=== PATIENT | female | born 1985 | race Caucasian/White ===

== ENCOUNTER 2020-10-22 10:48 | Emergency (ER) | payer SELFPAY ==
[2020-10-22 11:11] VITALS: BP 166/109; PULSE 69; RESP 16; TEMP 36.5; O2SAT 97; BMI 54.8
[2020-10-22] MEDS: cephALEXin 500 MG CAPSULE PO (12:01)
[2020-10-22] MEDS: Lidocaine HCl 1 % MPF 5 ML VIAL SUBCUT (12:01)
[2020-10-22] MEDS: oxyCODONE HCl Immed Release 5 MG TABLET PO (12:02)
[2020-10-22] MEDS: NaPROXEN 500 MG TABLET PO (12:02)
--- NOTE | 2020-10-22 12:34 | ED_ITS ---
HPI - Skin/Abscess/Foreign Bdy General Chief complaint: Skin/Abscess/Foreign Body Stated complaint: abscess Time Seen by Provider: 10/22/20 11:26 Source: patient Mode of arrival: ambulatory Limitations: no limitations History of Present Illness HPI narrative: 34-year-old female presenting to the ED c c/o abscess to the right axilla for the past 4 days. denies fevers, foreign bodies, history of MRSA or any other symptom complaints or concerns at this time. Related Data Previous Rx's Medication Instructions Recorded cephalexin [Keflex] 500 mg PO Q6H 10 Days #40 cap 10/22/20 doxycycline monohydrate 100 mg PO BID 10 Days #20 cap 10/22/20 ibuprofen 800 mg PO Q8H PRN #14 tab 10/22/20 oxycodone-acetaminophen [Percocet] 1 tab PO Q6H PRN #10 tab 10/22/20 Allergies Allergy/AdvReac Type Severity Reaction Status Date / Time Iodinated Contrast Media Allergy Severe BRONCHOSPAS Unverified 08/03/20 15:29 [IV CONTRAST] M aminophylline Allergy Unknown unknown - Unverified 11/12/16 00:00 childhood, unknown: chlidhood iodine Allergy Unknown asthma Verified 11/12/16 00:00 attack ondansetron [Zofran] Allergy Unknown Dizziness Verified 11/12/16 00:00 Allergic Reation to biscuits Allergy Unknown Uncoded 05/31/16 00:00 a I V dye Allergy Unknown Uncoded 05/31/16 00:00 Iodine Allergy Unknown asthma Uncoded 05/31/16 00:00 attack Review of Systems Review of Systems: Constitutional : No Fever, No Chills Musculoskeletal : No joint pain, No Myalgias, No Joint Swelling Skin : No Skin Lesions, No rash, + abscess Neuro : No Weakness Heme/Lymph:No Lymphadenopathy Yes all other systems are reviewed and are negative [facility] Past Medical History Attestation statement: The following information was validated with the patient. Medical History Asthma Surgical History H/O hand surgery History of cholecystectomy Social History Social History Advance Directives: No Advance Directives Information Provided: No Physical Exam Vital Signs: Vital Signs: Last Vital Signs Temp 97.7 F 10/22/20 11:11 Pulse 69 10/22/20 11:11 Resp 16 10/22/20 11:11 BP 166/109 H 10/22/20 11:11 Pulse Ox 97 10/22/20 11:11 Body Mass Index 54.8 vital signs have been reviewed as normal and appeared to be correct. Blood pressure normal. Heart rate normal. Respiration rate normal. Temperature normal. Oxygen saturation normal. Appearance: Alert. Oriented X3. No acute distress. Head: Normal external exam. Normocephalic. Atraumatic. Eyes: PERRLA. EOMI. Conjunctiva and sclera normal. Eyelids normal. ENT: Pharynx normal. Uvula midline. Moist mucous membranes. Neck: Normal inspection. Neck supple. FROM. No adenopathy. No meningeal signs. No neck mass noted. CVS: Normal heart rate and rhythm. Heart sound normal. No murmurs noted. Pulses normal throughout. Respiratory: No respiratory distress. Painless inspiration. Breath sounds normal. Back: No CVA tenderness. Full range of motion noted. Skin: Tender fluctuant abscess noted to right axilla with mild surrounding erythema. No streaking or induration noted. No drainage noted. Skin warm and dry. Normal skin color. Normal skin turgor. No rashes/lesions/lacerations noted. Extremities: Extremities exhibit normal range of motion. Extremities nontender. Neuro: Oriented X 3. No motor deficit. No sensory deficit. Reflexes normal. Procedures Abscess I/D Site: upper extremity Side (if applicable): right Local Anesthetic: lidocaine 1% Amount of anesthesia used (mL): 5 Technique: incised with blade Amount of fluid expressed (mL): 10 Sent for culture/gram staining?: No Irrigation: Yes Packing used?: none Discharge Plan Discharge Clinical Impression: Cellulitis, Abscess of skin or subcutaneous tissue Patient Disposition: Home, Self-Care Instructions: Cellulitis (ED), Abscess (ED) Prescriptions: New ibuprofen 800 mg tablet 800 mg PO Q8H PRN (Reason: pain) Qty: 14 RF: 0 oxycodone-acetaminophen [Percocet] 5-325 mg tablet 1 tab PO Q6H PRN (Reason: pain) Qty: 10 RF: 0 doxycycline monohydrate 100 mg capsule 100 mg PO BID 10 Days Qty: 20 RF: 0 cephalexin [Keflex] 500 mg capsule 500 mg PO Q6H 10 Days Qty: 40 RF: 0 Referrals: Osmel Gordillo MD [Physician] - 2 days Stand Alone Forms: Work/School Release
== END 2020-10-22 12:45 | disposition home or self-care (01) ==
PROVIDERS: Emergency Provider Internal Medicine; PCP Nurse Practitioner Family
DX: L02.411 Cutaneous abscess of right axilla (principal); Z79.899 Other long term (current) drug therapy
CPT/HCPCS: 10060; 12001; 99283

== ENCOUNTER 2022-09-19 09:25 | Emergency (ER) | payer OTHER, SELFPAY ==
--- OUTSIDE RECORDS SUMMARY | 2022-09-19 10:00 | XMS_ITS | Continuity of Care Document ---
:1985 Author Organization [facility] Address [address] [place] [address]- Care Team Providers Name Role Phone Celine Jorge NP Primary Care Physician [id number] Date(s): 08/09/21 - 09/22/21 [facility] [address] [place] [address]- Attending Physician: Anthony Westfall MD Referring Physician: Celine Jorge NP Allergies, Adverse Reactions, Alerts Substance Reaction Severity Status aminophylline/amobarbital/ephedrine Active Contrast Dye Active
--- OUTSIDE RECORDS SUMMARY | 2022-09-19 10:00 | XMS_ITS | Continuity of Care Document ---
:1985 Author Organization [facility] Address [address] [place] [address]- Care Team Providers Name Role Phone [place] Celine LYNN Primary Care Physician Encounter [facility] NBR [id number] Date(s): 07/18/21 - 08/17/21 [facility] [address] [place] [address]- Allergies, Adverse Reactions, Alerts Substance Reaction Severity Status aminophylline/amobarbital/ephedrine Active Contrast Dye Active
--- OUTSIDE RECORDS SUMMARY | 2022-09-19 10:00 | XMS_ITS | Continuity of Care Document ---
:1985 Author Organization [facility] Isha [facility] Address [address] [address]- Care Team Providers Name Role Phone [place] [facility] WORKERCeline Primary Care Physician Encounter [facility] Date(s): 07/18/21 - 08/17/21 [facility] [address] [address]- Attending Physician: Annabel Padilla Admitting Physician: Annabel Padilla Referring Physician: Annabel Padilla Allergies, Adverse Reactions, Alerts Substance Reaction Severity Status aminophylline/amobarbital/ephedrine Active Contrast Dye Active
--- OUTSIDE RECORDS SUMMARY | 2022-09-19 10:00 | XMS_ITS | Continuity of Care Document ---
:1985 Author Organization [facility] Address [address] [place] [address]- Care Team Providers Name Role Phone [place] SECOND VP HR ASSESSMENTCeline Primary Care Physician Encounter [facility] Date(s): 08/23/21 - 09/22/21 [facility] [address] [place] [address]- Attending Physician: Annabel Padilla Admitting Physician: Annabel Padilla Referring Physician: Admtr, Ar8 Allergies, Adverse Reactions, Alerts Substance Reaction Severity Status aminophylline/amobarbital/ephedrine Active Contrast Dye Active
--- OUTSIDE RECORDS SUMMARY | 2022-09-19 10:00 | XMS_ITS | Continuity of Care Document ---
:1985 Author Organization [facility] Address [address] [place] [address]- Care Team Providers Name Role Phone [place] Celine LYNN Primary Care Physician [place] [facility] [place] - 01/03/[address] [address] Attending Physician: Tianna Soto Admitting Physician: Tianna Soto Referring Physician: Tianna Soto Allergies, Adverse Reactions, Alerts Substance Reaction Severity Status aminophylline/amobarbital/ephedrine Active Contrast Dye Active
== END 2022-09-19 10:12 | disposition left against medical advice (07) ==
PROVIDERS: Emergency Provider Emergency Medicine
DX: R22.42 Localized swelling, mass and lump, left lower limb (principal)

== ENCOUNTER 2023-05-30 09:37 | Outpatient (REF) | payer OTHER, SELFPAY ==
[2023-05-31 12:34] LABS: CT PCR NOT DETECTED (Not Detect.); NG PCR NOT DETECTED (Not Detect.)
== END 2023-05-30 09:38 | disposition home or self-care (01) ==
LOC: HO.LNP 09:37
PROVIDERS: PCP Nurse Practitioner Family; Visit Provider Advanced Practice Midwife
DX: N93.9 Abnormal uterine and vaginal bleeding, unspecified (principal); Z20.2 Contact with and (suspected) exposure to infections with a predominantly sexual mode of transmission
CPT/HCPCS: 0353U; 81025; 99202

== ENCOUNTER 2023-05-30 09:37 | Outpatient (AMB) | payer OTHER, SELFPAY ==
[2023-05-30 09:43] VITALS: BP 138/92; BMI 59.7
--- NOTE | 2023-05-30 09:43 | MHC.OFFVIS ---
Intake Vital Signs 05/30/23 09:43 Height 5 ft 6 in Weight 370 lb BMI 59.7 BP 138/92 H Intake Visit Reasons: menorrhagia Intake Note: The patient agreed to use of a medical investigator during this encounter. Scribed for COLEEN Dodd by Brenda Akins medical investigator, on 05/30/2023 at 10:00 am EST Auto Mechanic Supervisor Required: No Information Interpreted: non-clinical & clinical Tour Operator: Tour Operator Present (Tatiana Segundo ELIZABETH) Accompanied by: Self / Same As Patient Allergies Iodinated Contrast Media [IV CONTRAST] Allergy (Severe, Unverified 05/30/23 09:46) BRONCHOSPASM aminophylline Allergy (Unknown, Unverified 05/30/23 09:46) unknown - childhood, unknown: chlidhood iodine Allergy (Unknown, Verified 05/30/23 09:46) asthma attack ondansetron [Zofran] Allergy (Unknown, Verified 05/30/23 09:46) Dizziness Allergic Reation to biscuits a Allergy (Unknown, Uncoded 05/30/23 09:46) Anaphylaxis I V dye Allergy (Unknown, Uncoded 05/30/23 09:46) asthma attack Iodine Allergy (Unknown, Uncoded 05/30/23 09:46) asthma attack Is last menstrual period known: Yes Last menstrual period: 05/27/23 HPI HPI Comments History of Present Illness Details She presents for heavy and prolonged bleeding. She reports bleeding for approximately 45 days, started 03/25/22. Reports the bleeding stopped for 1 day and then started again on 05/27/23. Went to [facility] on 04/03/23 with complaints of heavy and prolonged bleeding with blood clots, 9 days straight. Her menses are typically 5-7 days. Also reported feeling dizzy when she went to [facility]. Lost a substantial amount of weight and then injured her knee and reports gaining all the weight back recently. Admits to recent cortisone injection one week prior to starting menses. Currently sexually active with female partner only. STD testing offered; she accepts. 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 Sexual orientation: Straight/Heterosexual Gender identity: Female Female Reproductive History Menstrual Age of Menarche: 12 Date of last menstrual period: 05/27/23 Review of Systems Const All systems reviewed & are unremarkable except as noted in HPI and below Reports abnormal vaginal bleeding Physical Exam Vital Signs: Last Vital Signs BP 138/92 H 05/30/23 09:43 BMI result Body Mass Index 59.7 Const General: cooperative, no acute distress, well developed and alert GI Inspection: Yes normal to inspection and Yes obesity External Female Exam: normal external appearance Speculum Exam - Vagina: normal appearance of the vagina (larger, longer metal speculum used) and vaginal bleeding (moderate amount in vault) Speculum Exam - Cervix: normal appearance of the cervix Bimanual exam- vagina & uterus: other (could not palpate due to body habitus) OB/external & speculum: vaginal bleeding (moderate amount in vault) Results AMB Test Urine AMB Test Urine Negative Last Edit by Tatiana Segundo CMA on 05/30/23 10:02 Results Reviewed Results Reviewed: Laboratory Last Values Tst Clinic Negative 05/30/23 10:01 Assessment & Plan Assessment & Plan (1) Abnormal uterine bleeding (AUB): Code(s): N93.9 - Abnormal uterine and vaginal bleeding, unspecified Plan: Reviewed causes of AUB including stress, medications, illness, hormones, injuries or trauma, weight changes. Discussed work up including pelvic US and labs. Reviewed normal spacing of menses, contact office that are spaced out shorter than 3?weeks and greater than 3 months. Go to ER with any prolonged or heavy bleeding. All of her questions and concerns were addressed to the best of my ability and she is agreeable to plan of care. Encouraged patient portal. RTO in 2 weeks for test results. (2) Potential exposure to STD: Code(s): Z20.2 - Contact with and (suspected) exposure to infections with a predominantly sexual mode of transmission Orders: Orders US pelvic and transvaginal Today N93.9 - Abnormal uterine and vaginal bleeding, unspecified Thyroid Stimulating Hormone Today N92.1 - Excessive and frequent menstruation with irregular cycle, N93.9 - Abnormal uterine and vaginal bleeding, unspecified Complete Blood Count no Diff Today N93.9 - Abnormal uterine and vaginal bleeding, unspecified CT NG by PCR Today N93.9 - Abnormal uterine and vaginal bleeding, unspecified AMB HCG Urine Test Today Z32.02 - Encounter for test, result negative Coding Level of Care Code New Pt Level 4 (86873) Diagnoses Abnormal uterine bleeding (AUB) N93.9 Potential exposure to STD Z20.2
== END 2023-05-30 10:26 | disposition home or self-care (01) ==
LOC: HO.HWS 09:37
PROVIDERS: PCP Nurse Practitioner Family; Visit Provider Advanced Practice Midwife
DX: N93.9 Abnormal uterine and vaginal bleeding, unspecified (principal); Z20.2 Contact with and (suspected) exposure to infections with a predominantly sexual mode of transmission; Z32.02 Encounter for pregnancy test, result negative
CPT/HCPCS: 99204

== ENCOUNTER 2023-06-06 14:26 | Outpatient (REF) | payer OTHER, SELFPAY ==
--- NOTE | ~2023-06-06 | US_ITS ---
EXAMINATION: US PELVIS CLINICAL INFORMATION: Abnormal uterine bleeding. Last menstrual period 05/27/2021. COMPARISON: None available. TECHNIQUE: Ultrasound of the pelvis is performed using both transabdominal and transvaginal transducers along with Doppler. Transvaginal imaging is performed due to inadequate visualization transabdominally. FINDINGS: The uterus is heterogeneous and measures 8.2 x 3.6 x 4.2 cm. No discrete fibroids identified. Endometrial thickness is 0.8 cm. Endometrium appears heterogeneous and echogenic. No significant free fluid. Right ovary measures 2.9 x 1.7 x 1.6 cm, volume 4.1 mL. Right ovary is unremarkable. Left ovary measures 2.8 x 1.6 x 2.3 cm, volume 4.9 mL and is unremarkable. US/US pelvic and transvaginal IMPRESSION: 1. Endometrial thickness is 0.8 cm. Endometrium appears heterogeneous and echogenic. 2. Unremarkable bilateral ovaries. 3. No discrete fibroids.
[2023-06-06 15:56] LABS: Hematocrit 35.4 % (37.0-47.0); Mean Corpuscular HGB Conc 31.1 g/dl (31.0-35.0); Mean Corpuscular Hemoglobin 24.8 pg (27.0-33.0); Mean Corpuscular Volume 79.7 fL (80.0-98.0); Mean Platelet Volume 9.7 fL (9.4-12.3); Platelet Count 358 X10*3/uL (160-400); Red Blood Count 4.44 X10*6/uL (4.20-5.50); Red Cell Distribution Width 14.4 % (11.0-16.0); White Blood Count 9.2 X10*3/uL (4.8-10.8)
[2023-06-06 17:08] LABS: Thyroid Stimulating Hormone 1.49 uIU/mL (0.32-4.0)
== END 2023-06-06 14:27 | disposition home or self-care (01) ==
LOC: HO.US 14:26
PROVIDERS: PCP Nurse Practitioner Family; Visit Provider Advanced Practice Midwife
DX: N92.1 Excessive and frequent menstruation with irregular cycle (principal); N93.9 Abnormal uterine and vaginal bleeding, unspecified
CPT/HCPCS: 36415; 76830; 76856; 84443; 85027

== ENCOUNTER 2023-06-16 14:22 | Outpatient (AMB) | payer OTHER, SELFPAY ==
[2023-06-16 14:38] VITALS: BP 158/100; PULSE 84; O2SAT 97; BMI 60.4
--- NOTE | 2023-06-16 14:38 | A.OFFPC_ITS ---
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 Allergies Iodinated Contrast Media [IV CONTRAST] Allergy (Severe, Unverified 06/16/23 14:42) BRONCHOSPASM aminophylline Allergy (Unknown, Unverified 06/16/23 14:42) unknown - childhood, unknown: chlidhood iodine Allergy (Unknown, Verified 06/16/23 14:42) asthma attack ondansetron [Zofran] Allergy (Unknown, Verified 06/16/23 14:42) Dizziness Allergic Reation to biscuits a Allergy (Unknown, Uncoded 06/16/23 14:42) Anaphylaxis I V dye Allergy (Unknown, Uncoded 06/16/23 14:42) asthma attack Iodine Allergy (Unknown, Uncoded 06/16/23 14:42) asthma attack Medication List - Last Reconciled 06/16/23 by GELA Mabry-GÉNESIS albuterol sulfate 90 mcg/actuation (Ventolin HFA) 2 puffs inhalation Q6H PRN cetirizine (Zyrtec) 10 mg PO DAILY PRN Tobacco use date assessed: 06/16/23 Dental Screening Dental Screen Date: 06/16/23 Did you have a dental visit in the last 12 months?: No Did you have a dental problem in the last 6 months where you did not have access to dental care?: No Was dental information given to patient?: No HPI BRASS MOLDER-Requesting Physical Exam HPI Details New pt is here for a PE. Will order labs. Has a esthetician facialist. Pt's blood pressure is elevated, will have pt monitor her BP at home. Denies chest pain, shortness of breath, headache, dizziness, and blurred vision. Pt also reports edema of her BLE. Will start hydrochlorothiazide 12.5mg. Pt will call me if her BP remains elevated. 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 1. Little interest or pleasure in doing things: several days 2. Feeling down, depressed, or hopeless: several days 3. Trouble falling or staying asleep, or sleeping too much: more than half the days 4. Feeling tired or having little energy: more than half the days 5. Poor appetite or overeating: nearly every day 6. Feeling bad about yourself - or that you are a failure or have let yourself or your family down: several days 7. Trouble concentrating on things, such as reading the newspaper or watching television: more than half the days 8. Moving or speaking so slowly that other people could have noticed. Or the opposite - being so fidgety or restless that you have been moving around a lot more than usual: several days 9. Thoughts that you would be better off or of hurting yourself in some way: not at all Total score: 13 Source: Developed by Drs. Anthony Peng, Hattie Sharif, Yovany Arechiga and colleagues, with an educational ludwin from [employer]. Thrive Questionnaire Date Thrive assessed: 06/16/23 I am a: Patient What is your living situation today?: I have a steady place to live Within the past 12 months, did the food you bought not last and you didn't have the money to get more?: Sometimes True Within the past 12 months, did you worry whether your food would run out before you got money to buy more?: Sometimes True Do you have trouble paying for medicines?: Yes Do you have trouble getting transportation to medical appointments?: No Do you have trouble paying your heating and electricity bill?: Yes Do you have trouble taking care of your child, family member or friend?: No Do you have trouble with day-to-day activities such as bathing, preparing meals, shopping, managing finances, etc.?: No Are you currently unemployed and looking for a job?: No Are you interested in more education?: No GINI-7 AMB Questionnaire GINI-7 Date GINI - 7 assessed: 06/16/23 Feeling nervous, anxious, or on edge: 1 = Several days Not being able to stop or control worryin = Nearly every day Worrying too much about different things: 3 = Nearly every day Trouble relaxin = More than half the days Being so restless that it is hard to sit still: 1 = Several days Becoming easily annoyed or irritable: 3 = Nearly every day Feeling afraid as if something awful might happen: 2 = More than half the days Total GINI-7 score (0-4 normal; 5-9 mild; 10-14 moderate; 15-21 severe): 15 Source: Developed by Drs. Anthony Peng, Hattie Sharif, Yovany Arechiga and colleagues, with an educational ludwin from [employer]. Review of Systems Const Denies chills and Denies fever(s) Eyes Denies blurry vision ENT Denies vertigo, Denies dizziness and Denies sore throat Card Denies chest pain at rest, Denies chest pain with activity, Denies diaphoresis, Denies dyspnea and Denies dyspnea on exertion Resp Denies cough, Denies dyspnea, Denies dyspnea on exertion and Denies wheezing GI Denies abdominal pain, Denies melena, Denies hematochezia, Denies constipation, Denies diarrhea and Denies loose stools Denies hematuria Musc Denies numbness and Denies tingling Skin/Breast Denies lesions Neuro Denies vertigo, Denies dizziness, Denies numbness and Denies tingling Psych Denies anxiety, Denies depression, Denies homicidal ideation, Denies suicidal ideation and Denies other (substance abuse) Aller/Immun Denies wheezing Physical exam (Primary Care) Vital Signs: Last Vital Signs Pulse 84 06/16/23 14:38 BP 148/90 H 06/16/23 15:16 Pulse Ox 97 06/16/23 14:38 Oxygen Delivery Method Room Air 06/16/23 14:38 BMI result Body Mass Index 60.4 Tobacco/Smoking Status: Tobacco use Status Tobacco use date assessed 06/16/23 06/16/23 14:48 Patient Tobacco Use Status Never used Tobacco 06/16/23 14:38 e-Cigarette/Vaping Use Never Used 06/16/23 14:48 PHQ-9: PHQ-9 Score PHQ-9: Total score 13 06/16/23 15:16 Thrive Assessment: Date of Thrive Assessment Date Thrive assessed 06/16/23 06/16/23 14:53 Const General: cooperative Nutritional Appearance: obese morbidly obese Orientation/consciousness: patient oriented x3 HENMT Head: Yes normal to inspection, Yes normocephalic and Yes atraumatic Ears: TM's normal bilaterally Eyes General: appearance normal, both eyes and all related structures Alignment and Position: alignment normal and position normal Neck Neck: Yes normal visual inspection and Yes no lymphadenopathy Thyroid: Thyroid normal Resp Effort & Inspection: normal respiratory effort Auscultation: clear to auscultation bilaterally Cardio Rate: regular rate Rhythm: regular rhythm Heart sounds: S1 normal heart sound present, S2 normal heart sound present and no murmurs GI Palpation (GI): Soft to palpation and nontender Auscultation: normal bowel sounds Skin Rashes: no rashes Neuro General: patient oriented x3, moves all extremities, no focal motor deficits and deep tendon reflexes 2+ bilaterally Romberg Test: Negative Extrem Right lower extremity: edema (trace) Left lower extremity: edema (trace) Psych Appearance: grossly normal Mental Status: mental status grossly normal Speech and movement: Normal speech and movement present Affect: normal affect Attitude: cooperative Thought process: Normal thought process present Thought content: Normal thought content present Insight: Good insight present (Psych) Judgement: Good judgement present (Psych) Assessment and Plan Assessment & Plan (1) Physical exam: Code(s): Z00.00 - Encounter for general adult medical examination without abnormal findings Plan: Labs ordered Plan The patient agreed to the use of a anesthesiology medical doctor for this encounter. Scribed for FRANCHESCA Rojo by Ying Sacnhez, anesthesiology medical doctor, on 06/16/2023 at 14:55 EST. Orders: Orders Comprehensive [place]. Panel Fast Today Z00.00 - Encounter for general adult medical examination without abnormal findings Lipid Panel Today Z00.00 - Encounter for general adult medical examination without abnormal findings TSH reflex Free T4 Today Z00.00 - Encounter for general adult medical examinat ion without abnormal findings Complete Blood Count Auto Diff Today Z00.00 - Encounter for general adult medical examination without abnormal findings UA CC w/rflx Micro + Cult Today Z00.00 - Encounter for general adult medical examination without abnormal findings Medications: New albuterol sulfate 90 mcg/actuation (Ventolin HFA) 2 puffs inhalation Q6H PRN 8.5 grams 3RF bronchospasm hydrochlorothiazide 12.5 mg PO DAILY 30 days 30 tabs 3RF hydrochlorothiazide 12.5 mg PO DAILY 30 tabs 3RF 30 days Coding Level of Care Code New Pt Prev Care 18-39yr([id number] Diagnoses Physical exam Z00.00
[2023-06-16 15:16] VITALS: BP 148/90
== END 2023-06-16 15:45 | disposition home or self-care (01) ==
PROVIDERS: Visit Provider Nurse Practitioner Family
DX: Z00.00 Encounter for general adult medical examination without abnormal findings (principal)
CPT/HCPCS: 99385

== ENCOUNTER 2023-07-01 09:09 | Outpatient (AMB) | payer OTHER, SELFPAY ==
--- NOTE | 2023-07-01 09:12 | A.OFFVIS_ITS ---
Intake Vital Signs 07/01/23 09:13 Height 5 ft 6 in Weight 374 lb BMI 60.4 BP 116/70 Intake Visit Reasons: US follow up Intake Note: The patient agreed to use of a medical health researcher during this encounter. Scribed for COLEEN Dodd by Sima Tian, medical health researcher, on 07/01/2023 at 9:31 am EST. Allergies Iodinated Contrast Media [IV CONTRAST] Allergy (Severe, Verified 07/01/23 09:13) BRONCHOSPASM aminophylline Allergy (Unknown, Verified 07/01/23 09:13) unknown - childhood, unknown: chlidhood iodine Allergy (Unknown, Verified 07/01/23 09:13) asthma attack ondansetron [Zofran] Allergy (Unknown, Verified 07/01/23 09:13) Dizziness Allergic Reation to biscuits a Allergy (Unknown, Uncoded 06/16/23 14:42) Anaphylaxis I V dye Allergy (Unknown, Uncoded 06/16/23 14:42) asthma attack Iodine Allergy (Unknown, Uncoded 06/16/23 14:42) asthma attack HPI HPI Comments History of Present Illness Details She is here with her partner Lay to discuss US results regarding AUB. 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 Reports using BC in the past from ED in March and stopped due to emotional changes, nauseous, and visual disturbances which was a great concerns since he is a business project analyst. Admits weight gain (45lb.) due to knee injury, she noted her abnormal bleeding coincided with her weight gain. She denies any contraindications to control such as: migraines with aura, history of DVT or pulmonary emboli, high blood pressure, liver disease, thromb olic disorders, Lupus, +RUTH, or smoking. Elevated BP on prior visits-not candidate for TK. [facility] Medical History (Updated 07/01/23 @ 10:52 by Sima Tian) Asthma BMI 60.0-69.9, adult Elevated BP without diagnosis of hypertension Tear of meniscus of left knee Surgical History H/O hand surgery History of cholecystectomy Family History Mother HTN (hypertension) COPD (chronic obstructive pulmonary disease) Substance use disorder Father Diabetes Substance use disorder Sister Substance use disorder Brother Substance use disorder Social History Household Members Other:: son, female partner Housing: Apartment Alcohol intake: never Patient Tobacco Use Status: Never used Tobacco e-Cigarette/Vaping Use: Never Used Second Hand Smoke Exposure: No Current occupational status: employed 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 US PELVIS CLINICAL INFORMATION:? Abnormal uterine bleeding. Last menstrual period 05/27/2021. COMPARISON: None available. TECHNIQUE: Ultrasound of the pelvis is performed using both transabdominal and transvaginal transducers along with Doppler. Transvaginal imaging is performed due to inadequate visualization transabdominally. FINDINGS: The uterus is heterogeneous and measures 8.2 x 3.6 x 4.2 cm. No discrete fibroids identified. Endometrial thickness is 0.8 cm. Endometrium appears heterogeneous and echogenic. No significant free fluid. Right ovary measures 2.9 x 1.7 x 1.6 cm, volume 4.1 mL. Right ovary is unremarkable. Left ovary measures 2.8 x 1.6 x 2.3 cm, volume 4.9 mL and is unremarkable. US/US pelvic and transvaginal IMPRESSION: ? 1. Endometrial thickness is 0.8 cm. Endometrium appears heterogeneous and echogenic. ? 2. Unremarkable bilateral ovaries. ? 3. No discrete fibroids. Laboratory Tests 06/06/23 15:44 TSH 1.49 06/06/23 15:44 Hgb 11.0 L Assessment & Plan Assessment & Plan (1) Encounter to discuss test results: Code(s): Z71.2 - Person consulting for explanation of examination or test findings Plan: Discussed: US findings; normal. Consider a EMB if no improvement from medical treatment- control. All of her questions and concerns were addressed to the best of my ability and shared decision making. She is agreeable to plan of care. (2) Abnormal uterine bleeding (AUB): Code(s): N93.9 - Abnormal uterine and vaginal bleeding, unspecified Plan: Weight can effect menstrual cycles, by hormonal changes. Encouraged weight loss, follow a Mediterranean diet. Benefits of weight loss for her cycle control. Iron Rx ordered; Rx with instructions given, plan one every other day for the first week. If experience heavy prolonged menses contact office or go to ED. Schedule 3 months follow up and contact office sooner if needed. (3) control counseling: Code(s): Z30.09 - Encounter for other general counseling and advice on contraception Plan: Reviewed different BC options for cycle control including IUD and Nexplanon. She defers for now and opts to read literature given. Pt. unsure of what she wants for cycle control, I suggested Mirjuan jose, pt. prefers Nexplanon. Encouraged some form of treatment for cycle control, prevention of anemia and heavy, prolonged cylces. Pt. wants to consider her options. (4) BMI 60.0-69.9, adult: Code(s): Z68.44 - Body mass index [BMI] 60.0-69.9, adult (5) Elevated BP without diagnosis of hypertension: Code(s): R03.0 - Elevated blood-pressure reading, without diagnosis of hypertension Medications: New ferrous sulfate 325 mg PO DAILY 90 tabs 2RF Coding Level of Care Code Est Pt Level 3 (20340) Diagnoses Encounter to discuss test results Z71.2 Abnormal uterine bleeding (AUB) N93.9 control counseling Z30.09 BMI 60.0-69.9, adult Z68.44 Elevated BP without diagnosis of hypertension R03.0
[2023-07-01 09:13] VITALS: BP 116/70; BMI 60.4
== END 2023-07-01 09:53 | disposition home or self-care (01) ==
LOC: HO.HWS 09:09
PROVIDERS: PCP Nurse Practitioner Family; Visit Provider Advanced Practice Midwife
DX: Z71.2 Person consulting for explanation of examination or test findings (principal); N93.9 Abnormal uterine and vaginal bleeding, unspecified; Z30.09 Encounter for other general counseling and advice on contraception; Z68.44 Body mass index [BMI] 60.0-69.9, adult; R03.0 Elevated blood-pressure reading, without diagnosis of hypertension
CPT/HCPCS: 99213

== ENCOUNTER → 2023-07-01 09:09 | Outpatient (BNVA) | payer OTHER, SELFPAY | PROVIDERS: PCP Nurse Practitioner Family; Visit Provider Advanced Practice Midwife | DX: Z71.2 Person consulting for explanation of examination or test findings (principal); N93.9 Abnormal uterine and vaginal bleeding, unspecified | CPT/HCPCS: 99212 ==

== ENCOUNTER 2023-09-11 09:35 | Outpatient (REF) | payer OTHER, SELFPAY ==
[2023-09-11 11:46] LABS: MANUAL DIFF FLAG NO
[2023-09-11 11:52] LABS: Basophils Percent Auto 0.5 % (0-2); Eosinophils Absolute Auto 0.2 X10*3/uL (0.0-0.4); Eosinophils Percent Auto 2.6 % (0-4); Hematocrit 35.1 % (37.0-47.0); Hemoglobin 11.2 g/dl (12.0-16.0); Imm Gran Abs Auto 0.02 X10*3/uL (0.00-0.03); Imm Gran Pct Auto 0.3 % (0.0-0.4); Lymphocytes Absolute Auto 2.1 X10*3/uL (1.2-4.9); Lymphocytes Percent Auto 28.9 % (20-40); Mean Corpuscular HGB Conc 31.9 g/dl (31.0-35.0); Mean Corpuscular Hemoglobin 24.7 pg (27.0-33.0); Mean Corpuscular Volume 77.3 fL (80.0-98.0); Mean Platelet Volume 9.8 fL (9.4-12.3); Monocytes Absolute Auto 0.4 X10*3/uL (0.1-1.2); Monocytes Percent Auto 5.4 % (2-11); Neutrophils Absolute Auto 4.6 x10*3/uL (2.0-8.3); Neutrophils Percent Auto 62.3 % (45-73); Platelet Count 336 X10*3/uL (160-400); Red Blood Count 4.54 X10*6/uL (4.20-5.50); Red Cell Distribution Width 15.9 % (11.0-16.0); White Blood Count 7.4 X10*3/uL (4.8-10.8)
[2023-09-11 12:23] LABS: Alanine Aminotransferase 19 U/L (0-31); Albumin Level 4.3 g/dL (3.5-5.0); Alkaline Phosphatase 74 U/L (39-117); Anion Gap 13 (12-20); Aspartate Amino Transferase 17 U/L (5-31); Bilirubin Total 0.4 mg/dL (0.0-1.0); Blood Urea Nitrogen 8 mg/dL (9-16); Calcium 9.5 mg/dL (8.4-10.2); Carbon Dioxide 26 mmol/L (22-29); Chloride 102 mmol/L (96-108); Cholesterol 156 mg/dL (<200); Estimated Glomerular Filt Rate > 60; Glucose Fasting 82 mg/dL (60-99); HDL Cholesterol 37 mg/dL (>40); LDL Cholesterol Calculated 96 mg/dL (<100); Potassium 3.4 mmol/L (3.3-5.1); Sodium 138 mmol/L (135-145); Total Protein 7.8 g/dL (6.5-8.0); Triglycerides 117 mg/dL (<150)
[2023-09-11 12:29] LABS: TSH reflex Free T4 1.75 uIU/mL (0.32-4.0)
[2023-09-11 13:08] LABS: Appearance Urine Clear; Color Urine Dark Yellow; Glucose Urine UA Negative (Negative); Leukocyte Esterase Urine Negative (Negative); Nitrite Urine Negative (Negative); UMIC TRIGGER UACC YES; Urine Blood Small (1+) (Negative); Urine Ketones Negative (Negative); Urine Protein Negative (Neg-Trace)
[2023-09-11 13:13] LABS: Bacteria Urine None Seen (None Seen); Hyaline Casts Urine 0-2 /LPF (0-2); RBC Urine >20 /HPF (0-2); WBC Urine 0-5 /HPF (0-5)
== END 2023-09-11 09:36 | disposition home or self-care (01) ==
LOC: HO.HMGCLDS 09:35
PROVIDERS: PCP Nurse Practitioner Family; Visit Provider Nurse Practitioner Family
DX: Z00.00 Encounter for general adult medical examination without abnormal findings (principal)
CPT/HCPCS: 36415; 80053; 80061; 81001; 81003; 84443; 85025

== ENCOUNTER 2023-09-15 10:08 | Outpatient (AMB) | payer OTHER, SELFPAY ==
--- NOTE | 2023-09-15 10:11 | MHC.PC.OV ---
Vital Signs 09/15/23 10:16 Height 5 ft 6 in Weight 368 lb 2 oz BMI 59.4 BP 134/78 Blood Pressure Location Lt brachial Position Sitting Pulse 72 Pulse Source Pulse Oximeter Pulse Oximetry (%) 99 Oxygen Delivery Method Room Air Intake Visit Reasons: 3m follow up Allergies Iodinated Contrast Media [IV CONTRAST] Allergy (Severe, Verified 09/15/23 10:27) BRONCHOSPASM aminophylline Allergy (Unknown, Verified 09/15/23 10:27) unknown - childhood, unknown: chlidhood iodine Allergy (Unknown, Verified 09/15/23 10:27) asthma attack ondansetron [Zofran] Allergy (Unknown, Verified 09/15/23 10:27) Dizziness Allergic Reation to biscuits a Allergy (Unknown, Uncoded 09/15/23 10:27) Anaphylaxis I V dye Allergy (Unknown, Uncoded 09/15/23 10:27) asthma attack Iodine Allergy (Unknown, Uncoded 09/15/23 10:27) asthma attack Medication List - Last Reconciled 09/15/23 by FRANCHESCA Mabry albuterol sulfate 90 mcg/actuation (Ventolin HFA) 2 puffs inhalation Q6H PRN albuterol sulfate 2.5 mg (3 mL) inhalation Q6H cetirizine (Zyrtec) 10 mg PO DAILY ferrous sulfate 325 mg PO DAILY hydrochlorothiazide 12.5 mg PO DAILY 30 days Tobacco use date assessed: 09/15/23 Dental Screening Dental Screen Date: 09/15/23 Did you have a dental visit in the last 12 months?: No Did you have a dental problem in the last 6 months where you did not have access to dental care?: No Was dental information given to patient?: No HPI 3m follow up HPI Details Pt has been taking her blood pressure at home and reports it is in the 120s-130s/70s-80s. Denies chest pain, shortness of breath, headache, dizziness, and blurred vision. Pt reports alopecia. She would like a referral to dermatology, will refer. Pt reports increased allergies. She is taking cetirizine once a day, recommended increasing this to twice a day. Will also send fluticasone. [facility] Medical History (Updated 09/15/23 @ 11:06 by FRANCHESCA Mabry) Elevated BP without diagnosis of hypertension BMI 60.0-69.9, adult Tear of meniscus of left knee Asthma Surgical History H/O hand surgery History of cholecystectomy Family History Mother HTN (hypertension) COPD (chronic obstructive pulmonary disease) Substance use disorder Father Diabetes Substance use disorder Sister Substance use disorder Brother Substance use disorder Social History Household Members Other:: son, female partner Housing: Apartment Alcohol intake: never Patient Tobacco Use Status: Never used Tobacco e-Cigarette/Vaping Use: Never Used Second Hand Smoke Exposure: No Current occupational status: employed 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 How often do you have a drink containing alcohol?: Monthly or less 2. How many drinks containing alcohol do you have on a typical day when you are drinking?: 1 or 2 3. How often do you have six or more drinks on one occasion?: Never Total Score: 1 Score Reviewed/Action Taken: Yes GINI-7 AMB Questionnaire GINI-7 Date GINI - 7 assessed: 06/16/23 Source: Developed by Drs. Anthony Peng, Hattie Sharif, Yovany Arechiga and colleagues, with an educational ludwin from [employer]. Review of Systems Const Reports as per HPI Physical exam (Primary Care) Vital Signs: Last Vital Signs Pulse 72 09/15/23 10:16 BP 134/78 09/15/23 10:16 Pulse Ox 99 09/15/23 10:16 Oxygen Delivery Method Room Air 09/15/23 10:16 BMI result Body Mass Index 59.4 Tobacco/Smoking Status: Tobacco use Status Tobacco use date assessed 09/15/23 09/15/23 10:13 Patient Tobacco Use Status Never used Tobacco 09/15/23 10:12 e-Cigarette/Vaping Use Never Used 10/30/23 10:12 Thrive Assessment: Date of Thrive Assessment Date Thrive assessed 06/16/23 09/15/23 10:12 Const General: cooperative Nutritional Appearance: obese morbidly obese Orientation/consciousness: patient oriented x3 Resp Effort & Inspection: normal respiratory effort Auscultation: clear to auscultation bilaterally Cardio Rate: regular rate Rhythm: regular rhythm Heart sounds: S1 normal heart sound present and S2 normal heart sound present Neuro General: patient oriented x3 Psych Appearance: grossly normal Mental Status: mental status grossly normal Speech and movement: Normal speech and movement present Affect: normal affect Attitude: cooperative Thought process: Normal thought process present Thought content: Normal thought content present Insight: Good insight present (Psych) Judgement: Good judgement present (Psych) Assessment and Plan Assessment & Plan (1) Alopecia: Code(s): L65.9 - Nonscarring hair loss, unspecified Plan: Referred to derm (2) Allergies: Code(s): T78.40XA - Allergy, unspecified, initial encounter Plan The patient agreed to the use of a medical record coder for this encounter. Scribed for FRANCHESCA Rojo by Ying Sanchez medical record coder, on 09/15/2023 at 10:25 EST. Orders: Referrals Dermatology Referral L65.9 - Nonscarring hair loss, unspecified Medications: New prednisone 50 mg PO DAILY 6 tabs 0RF 6 days fluticasone propionate 50 mcg/actuation (Allergy Relief (fluticasone)) administer into each nostril 2 sprays intranasal DAILY 16 grams 2RF Coding Level of Care Code Est Pt Level 3 (28486) Diagnoses Alopecia L65.9 Allergies T78.40XA
[2023-09-15 10:16] VITALS: BP 134/78; PULSE 72; O2SAT 99; BMI 59.4
== END 2023-09-15 10:45 | disposition home or self-care (01) ==
PROVIDERS: PCP Nurse Practitioner Family; Visit Provider Nurse Practitioner Family
DX: L65.9 Nonscarring hair loss, unspecified (principal); T78.40XA Allergy, unspecified, initial encounter
CPT/HCPCS: 99213

== ENCOUNTER 2024-02-21 09:32 | Outpatient (AMB) | payer OTHER, SELFPAY ==
[2024-02-21 10:16] VITALS: BP 130/70; PULSE 62; TEMP 36.8; O2SAT 100; BMI 58.4
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
== END 2024-02-21 12:37 | disposition home or self-care (01) ==
PROVIDERS: PCP Nurse Practitioner Family; Visit Provider Physician Assistant Medical
DX: G44.89 Other headache syndrome (principal)
CPT/HCPCS: 99051; 99214

== ENCOUNTER 2024-03-04 11:26 | Outpatient (AMB) | payer OTHER, SELFPAY ==
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
[2024-03-04 11:35] VITALS: BP 118/80; PULSE 76; O2SAT 98; BMI 59.4
== END 2024-03-04 12:41 | disposition home or self-care (01) ==
PROVIDERS: PCP Nurse Practitioner Family; Visit Provider Nurse Practitioner Family
DX: M50.90 Cervical disc disorder, unspecified, unspecified cervical region (principal); Z04.2 Encounter for examination and observation following work accident; M25.512 Pain in left shoulder; E66.01 Morbid (severe) obesity due to excess calories; Z68.43 Body mass index [BMI] 50.0-59.9, adult
CPT/HCPCS: 99213

== ENCOUNTER 2024-03-11 09:57 | Outpatient (REF) | payer OTHER, SELFPAY ==
--- NOTE | ~2024-03-11 | XR_ITS ---
EXAMINATION: XR CERVICAL SPINE XR LEFT SHOULDER CLINICAL INFORMATION: Cervical disc disorder unspecified. Pain in left shoulder. COMPARISON: None available. TECHNIQUE: 3 views of the left shoulder. 3 views of the cervical spine. FINDINGS: LEFT SHOULDER: Acromioclavicular and glenohumeral alignment is preserved. Mild hypertrophic change at the acromioclavicular joint with small inferior calcification. No abnormal soft tissue calcifications identified adjacent to the humeral head. Mild hypertrophic change along the inferior aspect of the glenohumeral joint. CERVICAL SPINE: Straightening of the normal cervical lordosis. Limited visualization of C6 and C7 due to overlying soft tissue and bony structures. Minimal anterolisthesis of C3 on C4, C4 on C5, and C5 on C6. Degenerative changes with moderate loss of disc space height at C5-C6 and on very limited views of C6-C7. XR/XR cervical spine 2V IMPRESSION: 1. Mild degenerative changes left acromioclavicular joint. 2. Moderate degenerative disc disease at C5-C6. 3. Substantially limited visualization of C6 and C7 due to overlying soft tissue and bony structures.
--- NOTE | ~2024-03-11 | XR_ITS ---
EXAMINATION: XR CERVICAL SPINE XR LEFT SHOULDER CLINICAL INFORMATION: Cervical disc disorder unspecified. Pain in left shoulder. COMPARISON: None available. TECHNIQUE: 3 views of the left shoulder. 3 views of the cervical spine. FINDINGS: LEFT SHOULDER: Acromioclavicular and glenohumeral alignment is preserved. Mild hypertrophic change at the acromioclavicular joint with small inferior calcification. No abnormal soft tissue calcifications identified adjacent to the humeral head. Mild hypertrophic change along the inferior aspect of the glenohumeral joint. CERVICAL SPINE: Straightening of the normal cervical lordosis. Limited visualization of C6 and C7 due to overlying soft tissue and bony structures. Minimal anterolisthesis of C3 on C4, C4 on C5, and C5 on C6. Degenerative changes with moderate loss of disc space height at C5-C6 and on very limited views of C6-C7. XR/XR shoulder LT min 2V IMPRESSION: 1. Mild degenerative changes left acromioclavicular joint. 2. Moderate degenerative disc disease at C5-C6. 3. Substantially limited visualization of C6 and C7 due to overlying soft tissue and bony structures.
== END 2024-03-11 09:58 | disposition home or self-care (01) ==
LOC: HO.HMGCX 09:57
PROVIDERS: PCP Nurse Practitioner Family; Visit Provider Nurse Practitioner Family
DX: M25.512 Pain in left shoulder (principal); M50.90 Cervical disc disorder, unspecified, unspecified cervical region
CPT/HCPCS: 72040; 73030

== ENCOUNTER 2024-03-29 10:11 | Outpatient (AMB) | payer OTHER, SELFPAY ==
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
[2024-03-29 10:29] VITALS: BP 140/90; PULSE 80; O2SAT 98; BMI 59.7
== END 2024-03-29 13:53 | disposition home or self-care (01) ==
PROVIDERS: PCP Nurse Practitioner Family; Visit Provider Nurse Practitioner Family
DX: R03.0 Elevated blood-pressure reading, without diagnosis of hypertension (principal); M50.90 Cervical disc disorder, unspecified, unspecified cervical region; M25.512 Pain in left shoulder
CPT/HCPCS: 99213

== ENCOUNTER 2024-04-01 11:00 | Outpatient (RCR) | payer OTHER, SELFPAY ==
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
--- NOTE | 2024-04-29 10:15 | MHC.PT.DC ---
[facility] [place] Office [place] Office [place] Office [address] [phone] F: [phone] F: [phone] F: [phone] F: [phone] Physical Therapy Discharge Report Diagnosis: pain in L shoulder Date of Surgery: n/a Date of Evaluation: 03/25/24 Date of Discharge: 04/29/24 Treatments to Date: 2 Cancellations to Date: 7 No Shows to Date: 1 Discharge Status: Visit Non-compliance Discharge Summary: Pt has demonstrated poor attendance with PT since start of care. She has cancelled 7 appointments and no showed 1. Therefore pt to be d/c. Electronically signed by: Ella Robledo, PT, DPT, ATC Please sign and return to therapist. Thank you for your referral.
== END 2024-04-29 10:15 | disposition home or self-care (01) ==
LOC: HO.PTCHIC 11:00
PROVIDERS: PCP Nurse Practitioner Family; Visit Provider Nurse Practitioner Family
DX: M25.512 Pain in left shoulder (principal)
CPT/HCPCS: 97110; 97161

== ENCOUNTER 2024-06-24 08:14 | Outpatient (AMB) | payer OTHER, SELFPAY ==
[2024-06-24 08:17] VITALS: BP 132/78; PULSE 78; O2SAT 98; BMI 57.3
--- NOTE | 2024-06-24 08:17 | AM.OFFWIN_ITS ---
Intake Vital Signs 06/24/24 08:17 Height 5 ft 6 in Intake Visit Reasons: PE Intake Note: pt is here for annual exam Patient Tobacco Use Status: Never used Tobacco Allergies Iodinated Contrast Media [IV CONTRAST] Allergy (Severe, Verified 06/24/24 08:17) BRONCHOSPASM aminophylline Allergy (Unknown, Verified 06/24/24 08:17) unknown - childhood, unknown: chlidhood iodine Allergy (Unknown, Verified 06/24/24 08:17) asthma attack ondansetron [Zofran] Allergy (Unknown, Verified 06/24/24 08:17) Dizziness Allergic Reation to biscuits a Allergy (Unknown, Uncoded 03/29/24 10:32) Anaphylaxis I V dye Allergy (Unknown, Uncoded 03/29/24 10:32) asthma attack Iodine Allergy (Unknown, Uncoded 03/29/24 10:32) asthma attack PFSH Medical History DDD (degenerative disc disease), cervical Elevated BP without diagnosis of hypertension BMI 60.0-69.9, adult Tear of meniscus of left knee Asthma Surgical History H/O hand surgery History of cholecystectomy Family History Mother HTN (hypertension) COPD (chronic obstructive pulmonary disease) Substance use disorder Father Diabetes Substance use disorder Sister Substance use disorder Brother Substance use disorder Social History Household Members Other:: son, female partner Housing: Apartment Alcohol intake: never Patient Tobacco Use Status: Never used Tobacco e-Cigarette/Vaping Use: Never Used Second Hand Smoke Exposure: No Current occupational status: employed 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
--- NOTE | 2024-06-24 08:17 | MHC.PC.OV ---
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 Accompanied by: Self / Same As Patient Allergies Iodinated Contrast Media [IV CONTRAST] Allergy (Severe, Verified 06/24/24 08:17) BRONCHOSPASM aminophylline Allergy (Unknown, Verified 06/24/24 08:17) unknown - childhood, unknown: chlidhood iodine Allergy (Unknown, Verified 06/24/24 08:17) asthma attack ondansetron [Zofran] Allergy (Unknown, Verified 06/24/24 08:17) Dizziness Allergic Reation to biscuits a Allergy (Unknown, Uncoded 03/29/24 10:32) Anaphylaxis I V dye Allergy (Unknown, Uncoded 03/29/24 10:32) asthma attack Iodine Allergy (Unknown, Uncoded 03/29/24 10:32) asthma attack Medication List - Last Reconciled 06/24/24 by FRANCHESCA Mabry albuterol sulfate 90 mcg/actuation (Ventolin HFA) 2 puffs inhalation Q6H PRN albuterol sulfate 2.5 mg (3 mL) inhalation Q6H cetirizine (Zyrtec) 10 mg PO DAILY cyclobenzaprine 10 mg PO BEDTIME PRN 30 days ferrous sulfate 325 mg PO DAILY fluticasone propionate 50 mcg/actuation (Allergy Relief (fluticasone)) 2 sprays intranasal DAILY hydrochlorothiazide 25 mg PO DAILY meloxicam 7.5 mg PO DAILY PRN 30 days montelukast 10 mg PO BEDTIME sumatriptan succinate take 1 tab at onset of headache; if no relief may repeat 1 tab after at least 2 hrs; max = 4 tabs/24 hr PO Tobacco use date assessed: 03/04/24 Dental Screening Dental Screen Date: 03/04/24 HPI PE HPI Details Pt is here for a PE. Will order labs. 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 [facility] Medical History DDD (degenerative disc disease), cervical Elevated BP without diagnosis of hypertension BMI 60.0-69.9, adult Tear of meniscus of left knee Asthma Surgical History H/O hand surgery History of cholecystectomy Family History Mother HTN (hypertension) COPD (chronic obstructive pulmonary disease) Substance use disorder Father Diabetes Substance use disorder Sister Substance use disorder Brother Substance use disorder Social History Household Members Other:: son, female partner Housing: Apartment Alcohol intake: never Patient Tobacco Use Status: Never used Tobacco e-Cigarette/Vaping Use: Never Used Second Hand Smoke Exposure: No Current occupational status: employed 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 1. Little interest or pleasure in doing things: more than half the days 2. Feeling down, depressed, or hopeless: several days 3. Trouble falling or staying asleep, or sleeping too much: several days 4. Feeling tired or having little energy: several days 5. Poor appetite or overeating: several days 6. Feeling bad about yourself - or that you are a failure or have let yourself or your family down: several days 7. Trouble concentrating on things, such as reading the newspaper or watching television: several days 8. Moving or speaking so slowly that other people could have noticed. Or the opposite - being so fidgety or restless that you have been moving around a lot more than usual: nearly every day 9. Thoughts that you would be better off or of hurting yourself in some way: nearly every day Total score: 14 Depression Screening Interpretation: Positive (pt reports she will find her own therapist, denies and SI or HI) Depression Screening Follow-up: Existing condition Depression Screening Done: Yes 10462 - PHQ-9 Billing: Yes Source: Developed by Drs. Anthony Peng, Hattie Sharif, Yovany Arechiga and colleagues, with an educational ludwin from [employer]. Thrive Questionnaire Date Thrive assessed: 06/24/24 I am a: Patient What is your living situation today?: I have a steady place to live Within the past 12 months, did the food you bought not last and you didn't have the money to get more?: Sometimes True Within the past 12 months, did you worry whether your food would run out before you got money to buy more?: Never true Do you have trouble paying for medicines?: No Do you have trouble getting transportation to medical appointments?: No Do you have trouble paying your heating and electricity bill?: Yes Do you have trouble taking care of your child, family member or friend?: No Do you have trouble with day-to-day activities such as bathing, preparing meals, shopping, managing finances, etc.?: I choose not to answer this question Are you currently unemployed and looking for a job?: I choose not to answer this question Are you interested in more education?: No Please select the resources that you would like help with: Utilities Currently or been in a relationship where the following occur: I choose not to answer THRIVE Score: 2 AUDIT C Alcohol Use Questionnaire (AUDIT-C) 1. How often do you have a drink containing alcohol?: Never 2. How many drinks containing alcohol do you have on a typical day when you are drinking?: 1 or 2 3. How often do you have six or more drinks on one occasion?: Never Total Score: 0 Score Reviewed/Action Taken: Yes GINI-7 AMB Questionnaire GINI-7 Date GINI - 7 assessed: 06/24/24 Feeling nervous, anxious, or on edge: 1 = Several days Not being able to stop or control worryin = Several days Worrying too much about different things: 1 = Several days Trouble relaxin = Several days Being so restless that it is hard to sit still: 1 = Several days Becoming easily annoyed or irritable: 2 = More than half the days Feeling afraid as if something awful might happen: 2 = More than half the days Total GINI-7 score (0-4 normal; 5-9 mild; 10-14 moderate; 15-21 severe): 9 Source: Developed by Drs. Anthony Pneg, Hattie Sharif, Yovany Arechiga and colleagues, with an educational ludwin from [employer]. GINI-7 Assessment Billing GINI-7 Assessment Tool: GINI-7 Assessment 95530 Review of Systems Const Denies chills and Denies fever(s) Eyes Denies blurry vision ENT Denies vertigo, Denies dizziness and Denies sore throat Card Denies chest pain at rest, Denies chest pain with activity, Denies diaphoresis, Denies dyspnea and Denies dyspnea on exertion Resp Denies cough, Denies dyspnea, Denies dyspnea on exertion and Denies wheezing GI Denies abdominal pain, Denies melena, Denies hematochezia, Denies constipation, Denies diarrhea and Denies loose stools Denies hematuria Musc Denies numbness and Denies tingling Skin/Breast Denies lesions Neuro Denies vertigo, Denies dizziness, Denies numbness and Denies tingling Psych Denies anxiety, Denies depression, Denies homicidal ideation, Denies suicidal ideation and Denies other (substance abuse) Aller/Immun Denies wheezing Physical exam (Primary Care) Vital Signs: Last Vital Signs Pulse 78 06/24/24 08:17 BP 132/78 06/24/24 08:17 Pulse Ox 98 06/24/24 08:17 Oxygen Delivery Method Room Air 06/24/24 08:17 BMI result Body Mass Index 57.3 Tobacco/Smoking Status: Tobacco use Status Tobacco use date assessed 03/04/24 06/24/24 08:18 Patient Tobacco Use Status Never used Tobacco 06/24/24 08:18 e-Cigarette/Vaping Use Never Used 06/24/24 08:18 PHQ-9: PHQ-9 Score PHQ-9: Total score 14 06/24/24 08:44 Depression Screening Interpretation: Positive (pt reports she will find her own therapist, denies and SI or HI) Depression Screening Follow-up: Existing condition Thrive Assessment: Date of Thrive Assessment Date Thrive assessed 06/24/24 06/24/24 08:28 Currently or been in a relationship where the following occur: I choose not to answer Const General: cooperative Nutritional Appearance: obese morbidly obese Orientation/consciousness: patient oriented x3 HENMT Head: Yes normal to inspection, Yes normocephalic and Yes atraumatic Ears: TM's normal bilaterally Eyes General: appearance normal, both eyes and all related structures Alignment and Position: alignment normal and position normal Neck Neck: Yes normal visual inspection and Yes no lymphadenopathy Thyroid: Thyroid normal Resp Effort & Inspection: normal respiratory effort Auscultation: clear to auscultation bilaterally Cardio Rate: regular rate Rhythm: regular rhythm Heart sounds: S1 normal heart sound present, S2 normal heart sound present and no murmurs GI Palpation (GI): Soft to palpation and nontender Auscultation: normal bowel sounds Skin Rashes: no rashes Neuro General: patient oriented x3, moves all extremities, no focal motor deficits and deep tendon reflexes 2+ bilaterally Romberg Test: Negative Extrem Right lower extremity: edema (trace) Left lower extremity: edema (trace) Psych Appearance: grossly normal Mental Status: mental status grossly normal Speech and movement: Normal speech and movement present Affect: normal affect Attitude: cooperative Thought process: Normal thought process present Thought content: Normal thought content present Insight: Good insight present (Psych) Judgement: Good judgement present (Psych) Assessment and Plan Assessment & Plan (1) Physical exam: Code(s): Z00.00 - Encounter for general adult medical examination without abnormal findings Plan: labs ordered Plan The patient agreed to the use of a medical coding instructor for this encounter. Scribed for FRANCHESCA Rojo by Ying Sanchez medical coding instructor, on 06/24/2024 at 08:35 EST. Medications: Changed From cyclobenzaprine 5 mg PO BEDTIME 24 days PRN 24 tabs 0RF muscle spasm To cyclobenzaprine 10 mg PO BEDTIME PRN 30 tabs 1RF muscle spasm 30 days Refilled sumatriptan succinate take 1 tab at onset of headache; if no relief may repeat 1 tab after at least 2 hrs; max = 4 tabs/24 hr PO 7 tabs 3RF Coding Level of Care Code Est Pt Prev Care 18-39y(26444) Diagnoses Physical exam Z00.00 Additional Codes GINI-7 Assessment Billing - GINI-7 Assessment Tool: GINI-7 Assessment 23365 ([id number])
== END 2024-06-24 09:01 | disposition home or self-care (01) ==
PROVIDERS: PCP Nurse Practitioner Family; Visit Provider Nurse Practitioner Family
DX: Z00.00 Encounter for general adult medical examination without abnormal findings (principal)
CPT/HCPCS: 99395

== ENCOUNTER 2024-06-24 09:09 | Outpatient (REF) | payer OTHER, SELFPAY ==
[2024-06-24 10:13] LABS: Appearance Urine Cloudy; Color Urine Yellow; Glucose Urine UA Negative (Negative); Leukocyte Esterase Urine Moderate (2+) (Negative); Nitrite Urine Negative (Negative); UMIC TRIGGER UACC YES; Urine Blood Small (1+) (Negative); Urine Ketones Negative (Negative); Urine Protein Negative (Neg-Trace)
[2024-06-24 10:21] LABS: MANUAL DIFF FLAG NO
[2024-06-24 10:29] LABS: Basophils Percent Auto 0.4 % (0-2); Eosinophils Absolute Auto 0.2 X10*3/uL (0.0-0.4); Eosinophils Percent Auto 2.8 % (0-4); Hematocrit 35.7 % (37.0-47.0); Hemoglobin 11.4 g/dl (12.0-16.0); Imm Gran Abs Auto 0.02 X10*3/uL (0.00-0.03); Imm Gran Pct Auto 0.3 % (0.0-0.4); Lymphocytes Absolute Auto 1.4 X10*3/uL (1.2-4.9); Lymphocytes Percent Auto 18.6 % (20-40); Mean Corpuscular HGB Conc 31.9 g/dl (31.0-35.0); Mean Corpuscular Hemoglobin 25.7 pg (27.0-33.0); Mean Corpuscular Volume 80.4 fL (80.0-98.0); Mean Platelet Volume 9.8 fL (9.4-12.3); Monocytes Absolute Auto 0.5 X10*3/uL (0.1-1.2); Monocytes Percent Auto 5.9 % (2-11); Neutrophils Absolute Auto 5.6 x10*3/uL (2.0-8.3); Platelet Count 294 X10*3/uL (160-400); Red Blood Count 4.44 X10*6/uL (4.20-5.50); Red Cell Distribution Width 14.4 % (11.0-16.0); White Blood Count 7.8 X10*3/uL (4.8-10.8)
[2024-06-24 11:10] LABS: Bacteria Urine Trace (None Seen); Hyaline Casts Urine 0-2 /LPF (0-2); UACC Culture Trigger YES
[2024-06-24 11:14] LABS: Alanine Aminotransferase 12 U/L (0-31); Albumin Level 4.2 g/dL (3.5-5.0); Alkaline Phosphatase 70 U/L (39-117); Anion Gap 10 (12-20); Aspartate Amino Transferase 10 U/L (5-31); Bilirubin Total 0.3 mg/dL (0.0-1.0); Blood Urea Nitrogen 13 mg/dL (9-16); Calcium 9.9 mg/dL (8.4-10.2); Carbon Dioxide 29 mmol/L (22-29); Chloride 103 mmol/L (96-108); Cholesterol 152 mg/dL (<200); Estimated Glomerular Filt Rate > 60; Glucose Fasting 100 mg/dL (60-99); HDL Cholesterol 40 mg/dL (>40); LDL Cholesterol Calculated 93 mg/dL (<100); Sodium 138 mmol/L (135-145); Total Protein 7.8 g/dL (6.5-8.0); Triglycerides 97 mg/dL (<150)
[2024-06-24 11:32] LABS: TSH reflex Free T4 1.81 uIU/mL (0.32-4.0)
== END 2024-06-24 09:10 | disposition home or self-care (01) ==
LOC: HO.HMGCLDS 09:09
PROVIDERS: PCP Nurse Practitioner Family; Visit Provider Nurse Practitioner Family
DX: R03.0 Elevated blood-pressure reading, without diagnosis of hypertension (principal)
CPT/HCPCS: 36415; 80053; 80061; 81001; 81003; 84443; 85025; 87086

== ENCOUNTER 2024-06-25 09:24 | Outpatient (REF) | payer OTHER, SELFPAY ==
[2024-06-25 13:06] LABS: Appearance Urine Clear; Color Urine Yellow; Glucose Urine UA Negative (Negative); Leukocyte Esterase Urine Negative (Negative); Nitrite Urine Negative (Negative); Urine Blood Negative (Negative); Urine Ketones Negative (Negative); Urine Protein Negative (Neg-Trace)
[2024-06-25 13:14] LABS: Immature Retic Fraction 20.7 % (3.0-15.9); Retic HGB Equivalent 29.3 pg (30.0-35.0); Reticulocyte Percent 1.8 % (0.5-1.8)
[2024-06-25 13:38] LABS: Iron 44 mcg/dL (30-160); Percent Iron Saturation 13 % (15-50); Total Iron Binding Capacity 332 mcg/dL (228-428); Unsaturated Iron Binding 288 ug/dL
[2024-06-25 13:56] LABS: Ferritin 44 ng/mL (10-122)
[2024-06-25 13:59] LABS: Folate 9.1 ng/mL (> or = 4.0); Vitamin B12 435 pg/mL (200-900)
[2024-06-28 14:43] LABS: Hematocrit 36.7 % (35.0-45.0); Hemoglobin 11.8 g/dL (11.7-15.5); MCH 26.5 pg (27.0-33.0); MCV 82.3 fL (80.0-100.0); RBC 4.46 Million/uL (3.80-5.10); RDW 14.4 % (11.0-15.0)
== END 2024-06-25 09:25 | disposition home or self-care (01) ==
LOC: HO.HMGCLDS 09:24
PROVIDERS: PCP Nurse Practitioner Family; Visit Provider Nurse Practitioner Family
DX: D64.9 Anemia, unspecified (principal); R03.0 Elevated blood-pressure reading, without diagnosis of hypertension
CPT/HCPCS: 36415; 81003; 82607; 82728; 82746; 83020; 83540; 85014; 85018; 85041; 85045

== ENCOUNTER 2024-10-07 10:18 | Outpatient (AMB) | payer OTHER, SELFPAY ==
[2024-10-07 10:25] VITALS: BP 132/84; PULSE 83; O2SAT 98; BMI 59.1
--- NOTE | 2024-10-07 10:25 | A.OFFPC_ITS ---
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 Accompanied by: Self / Same As Patient Allergies Iodinated Contrast Media [IV CONTRAST] Allergy (Severe, Verified 10/07/24 10:27) BRONCHOSPASM aminophylline Allergy (Unknown, Verified 10/07/24 10:27) unknown - childhood, unknown: chlidhood iodine Allergy (Unknown, Verified 10/07/24 10:27) asthma attack ondansetron [Zofran] Allergy (Unknown, Verified 10/07/24 10:27) Dizziness Allergic Reation to biscuits a Allergy (Unknown, Uncoded 03/29/24 10:32) Anaphylaxis I V dye Allergy (Unknown, Uncoded 03/29/24 10:32) asthma attack Iodine Allergy (Unknown, Uncoded 03/29/24 10:32) asthma attack Medication List - Last Reconciled 10/07/24 by Juaquin Patel, [employer] MA[employer]GER- albuterol sulfate 90 mcg/actuation (Ventolin HFA) 2 puffs inhalation Q6H PRN albuterol sulfate 2.5 mg (3 mL) inhalation Q6H cetirizine (Zyrtec) 10 mg PO DAILY cyclobenzaprine 10 mg PO BEDTIME PRN 30 days ferrous sulfate 325 mg PO DAILY fluticasone propionate 50 mcg/actuation (Allergy Relief (fluticasone)) 2 sprays intranasal DAILY hydrochlorothiazide 25 mg PO DAILY meloxicam 7.5 mg PO DAILY PRN 30 days montelukast 10 mg PO BEDTIME sumatriptan succinate take 1 tab at onset of headache; if no relief may repeat 1 tab after at least 2 hrs; max = 4 tabs/24 hr PO tirzepatide (weight loss) (Zepbound) 2.5 mg (0.5 mL) subcut QWEEK Tobacco use date assessed: 03/04/24 Dental Screening Dental Screen Date: 03/04/24 HPI weight loss med options HPI Details Patient is here for follow-up for her morbid obesity/weight loss. She reports that she has tried diets and exercise in the past. Her current BMI is 59.1. I think it is imperative that she does start a GLP 1 agonist, I will send zepbound. Denies any shortness of breath, chest pain, dizziness, headache, blurred vision. Patient understands the side effects of this medication and how it works. [facility] Medical History DDD (degenerative disc disease), cervical Elevated BP without diagnosis of hypertension BMI 60.0-69.9, adult Tear of meniscus of left knee Asthma Surgical History H/O hand surgery History of cholecystectomy Family History Mother HTN (hypertension) COPD (chronic obstructive pulmonary disease) Substance use disorder Father Diabetes Substance use disorder Sister Substance use disorder Brother Substance use disorder Social History Household Members Other:: son, female partner Housing: Apartment Alcohol intake: never Patient Tobacco Use Status: Never used Tobacco e-Cigarette/Vaping Use: Never Used Second Hand Smoke Exposure: No Current occupational status: employed 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 Sexual orientation: Straight/Heterosexual Gender identity: Female Cognitive needs: No Hearing needs: No Vision needs: No Female Reproductive History Menstrual Age of Menarche: 12 Questionnaire Thrive Questionnaire Date Thrive assessed: 10/07/24 I am a: Patient What is your living situation today?: I have a steady place to live Within the past 12 months, did the food you bought not last and you didn't have the money to get more?: Sometimes True Within the past 12 months, did you worry whether your food would run out before you got money to buy more?: Never true Do you have trouble paying for medicines?: No Do you have trouble getting transportation to medical appointments?: No Do you have trouble paying your heating and electricity bill?: Yes Do you have trouble taking care of your child, family member or friend?: No Do you have trouble with day-to-day activities such as bathing, preparing meals, shopping, managing finances, etc.?: I choose not to answer this question Are you currently unemployed and looking for a job?: I choose not to answer this question Are you interested in more education?: No Please select the resources that you would like help with: Utilities Currently or been in a relationship where the following occur: I choose not to answer THRIVE Score: 2 GINI-7 AMB Questionnaire GINI-7 Date GINI - 7 assessed: 06/24/24 Source: Developed by Drs. Anthony Peng, Hattie Sharif, Yovany Arechiga and colleagues, with an educational ludwin from [employer]. Physical exam (Primary Care) Vital Signs: Last Vital Signs Pulse 83 10/07/24 10:25 BP 132/84 10/07/24 10:25 Pulse Ox 98 10/07/24 10:25 Oxygen Delivery Method Room Air 10/07/24 10:25 BMI result Body Mass Index 59.1 Tobacco/Smoking Status: Tobacco use Status Tobacco use date assessed 03/04/24 10/07/24 10:28 Patient Tobacco Use Status Never used Tobacco 10/07/24 10:28 e-Cigarette/Vaping Use Never Used 10/07/24 10:28 Thrive Assessment: Date of Thrive Assessment Date Thrive assessed 10/07/24 10/07/24 10:28 Currently or been in a relationship where the following occur: I choose not to answer Resp Effort & Inspection: normal respiratory effort Auscultation: clear to auscultation bilaterally Cardio Rate: regular rate Rhythm: regular rhythm Heart sounds: S1 normal heart sound present, S2 normal heart sound present and no murmurs Psych Appearance: grossly normal Mental Status: mental status grossly normal Speech and movement: Normal speech and movement present Attitude: cooperative Thought process: Normal thought process present Thought content: Normal thought content present Insight: Good insight present (Psych) Judgement: Good judgement present (Psych) Coding Level of Care Code Est Pt Level 3 (63245) Diagnoses Morbid obesity E66.01 Assessment & Plan Assessment & Plan (1) Morbid obesity: Code(s): E66.01 - Morbid (severe) obesity due to excess calories Category: Medical Plan: Sending a GLP 1 agonist for patient to start. Lab orders entered. Orders: Orders Comprehensive [place]. Panel Fast Today E66.01 - Morbid (severe) obesity due to excess calories TSH reflex Free T4 Today E66.01 - Morbid (severe) obesity due to excess calories Lipid Panel Today E66.01 - Morbid (severe) obesity due to excess calories Complete Blood Count Auto Diff Today E66.01 - Morbid (severe) obesity due to excess calories UA CC w/rflx Micro + Cult Today E66.01 - Morbid (severe) obesity due to excess calories Medications: New omeprazole 20 mg PO DAILY 30 caps 3RF tirzepatide (weight loss) (Zepbound) for 4 weeks 2.5 mg (0.5 mL) subcut QWEEK 2 mL 0RF
== END 2024-10-07 11:09 | disposition home or self-care (01) ==
PROVIDERS: PCP Nurse Practitioner Family; Visit Provider Nurse Practitioner Family
DX: E66.01 Morbid (severe) obesity due to excess calories (principal); Z68.43 Body mass index [BMI] 50.0-59.9, adult

== ENCOUNTER → 2024-10-07 10:18 | Outpatient (BNVA) | payer OTHER, SELFPAY | PROVIDERS: PCP Nurse Practitioner Family; Visit Provider Nurse Practitioner Family | DX: E66.01 Morbid (severe) obesity due to excess calories (principal); Z68.43 Body mass index [BMI] 50.0-59.9, adult; Z71.3 Dietary counseling and surveillance | CPT/HCPCS: 99212 ==

== ENCOUNTER 2024-12-14 14:25 | Emergency (ER) | payer OTHER, SELFPAY ==
--- NOTE | 2024-12-14 15:08 | ED.GENADULT ---
HPI - General Adult General Chief complaint: General Medical Stated complaint: Electrocution R hand Time Seen by Provider: 12/14/24 19:35 Source: patient Limitations: no limitations History of Present Illness ED Provider: Ashia Damon PA-C HPI narrative: 39-year-old female presents after electrolyte shock. Patient states she was playing in her phone dairy products maker when she sustained a shock into the right 2nd digit. Patient states initially the pain radiated up to the point of the elbow. Her forearm felt tense at that time. Her symptoms are improving, she has residual ?tingling sensation?, over the tip of the 2nd digit. Related Data Previous Rx's ?Medication ?Instructions ?Recorded albuterol sulfate 90 mcg/actuation 2 puff inhalation Q6H PRN 06/16/23 aerosol inhaler (Ventolin HFA) bronchospasm #8.5 grams ferrous sulfate 325 mg (65 mg 325 mg PO DAILY #90 tabs 07/01/23 iron) tablet cetirizine 10 mg tablet (Zyrtec) 10 mg PO DAILY #90 tabs 11/12/23 fluticasone propionate 50 2 spray intranasal DAILY #16 grams 11/12/23 mcg/actuation nasal spray,suspension (Allergy Relief (fluticasone)) albuterol sulfate 2.5 mg/3 mL 2.5 mg (3 mL) inhalation Q6H #75 mL 06/09/24 (0.083 %) solution for nebulization montelukast 10 mg tablet 10 mg PO BEDTIME #90 tabs 06/23/24 sumatriptan succinate 25 mg tablet See Rx Instructions PO .COMPLEX #7 06/24/24 tabs hydrochlorothiazide 25 mg tablet 25 mg PO DAILY #90 tabs 09/19/24 cyclobenzaprine 10 mg tablet 10 mg PO BEDTIME PRN muscle spasm 10/05/24 30 days #30 tabs omeprazole 20 mg capsule,delayed 20 mg PO DAILY #30 caps 10/07/24 release tirzepatide (weight loss) 2.5 2.5 mg (0.5 mL) subcut QWEEK #2 mL 10/07/24 mg/0.5 mL subcutaneous pen injector (Zepbound) meloxicam 7.5 mg tablet 7.5 mg PO DAILY PRN left shoulder 11/26/24 30 days #30 tabs methocarbamol 750 mg tablet 750 mg PO Q8H PRN pain, moderate 12/14/24 #10 tabs Allergies Allergy/AdvReac Type Severity Reaction Status Date / Time Iodinated Contrast Media Allergy Severe BRONCHOSPAS Verified 12/14/24 15:14 [IV CONTRAST] M aminophylline Allergy Unknown unknown - Verified 12/14/24 15:14 childhood, unknown: chlidhood iodine Allergy Unknown asthma Verified 12/14/24 15:14 attack ondansetron [Zofran] Allergy Unknown Dizziness Verified 12/14/24 15:14 lactose Allergy Gastrointestinal Verified 12/14/24 15:14 Upset I V dye Allergy Unknown asthma Uncoded 12/14/24 15:14 attack Iodine Allergy Unknown asthma Uncoded 12/14/24 15:14 attack romanian cheese Allergy Anaphylaxis Uncoded 12/14/24 15:14 Review of Systems Review of Systems: Yes all other systems are reviewed and are negative Constitutional: Constitutional: Denies fatigue and Denies fever(s) Cardiovascular: Cardiovascular: Denies chest pain and Denies dyspnea Respiratory: Respiratory: Denies dyspnea Musculoskeletal: Musculoskeletal: Denies deformity, Denies arthralgias, Denies joint swelling, Reports muscle cramps, Denies muscle weakness, Denies numbness, Denies stiffness and Reports tingling Neurologic: Denies numbness and Reports tingling Endocrine: Endocrine: Denies fatigue PMFSH Past Medical History Attestation statement: The following information was validated with the patient. Medical History DDD (degenerative disc disease), cervical Elevated BP without diagnosis of hypertension BMI 60.0-69.9, adult Tear of meniscus of left knee Asthma Surgical History H/O hand surgery History of cholecystectomy Family History Family History Mother HTN (hypertension) COPD (chronic obstructive pulmonary disease) Substance use disorder Father Diabetes Substance use disorder Sister Substance use disorder Brother Substance use disorder Social History Social History Household Members Other:: son, female partner Housing: Apartment Alcohol intake: never Patient Tobacco Use Status: Never used Tobacco e-Cigarette/Vaping Use: Never Used Second Hand Smoke Exposure: No Advance Directives: No Advance Directives Information Provided: No Current occupational status: employed 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 The pad of the right 2nd digit has faint black tinge, there was no open wound there was no erythema, objective sensation intact Neuro General: patient oriented x3, no focal motor deficits and CN's II-XI intact bilaterally Extrem Other: The right upper extremity is warm and well perfused, pulses intact as already documented, there is no pallor, paresthesia or rigidity of the compartments of the right forearm. Patient has full flexion and extension at the wrist and the elbow there was no deformity Psych Other: Calm cooperative Course Course Course Narrative: This is an RME: Additional HPI, ROS, PE not included below will be deferred to primary provider. RME assessment and note performed by: Shaina Randle PA-C This is a [id number]-female who presents to the ER with complaints of right second digit pain s/p being electrocuted by her phone dairy products maker. She has some discoloration to her second digit. Pain radiates up into her right hand, and upper arm. Plan: Labs, further ER eval needed Medical Decision Making Medical Decision Making MDM Narrative: 39-year-old female presents after electrolyte shock. Patient states she was playing in her phone dairy products maker when she sustained a shock into the right 2nd digit. Patient states initially the pain radiated up to the point of the elbow. Her forearm felt tense at that time. Her symptoms are improving, she has residual ?tingling sensation?, over the tip of the 2nd digit. No relevant chronic issues History: Per patient I have considered the following differential diagnoses: Fracture, dislocation, compartment syndrome, nerve damage, transient paresthesia, muscle damage/rhabdomyolysis , thermal burn Plan: Patient's symptoms are minimal, she has been here for 5 hours, they are markedly improved since the incident occurred. She is having some residual paresthesia at the tip of the finger which will likely resolve. We will treat her muscle pain with a muscle relaxant. She can follow up with primary care. There is nothing additional to do emergently overnight. I have independently reviewed the following tests: Labs: No leukocytosis, not anemic, no electrolyte abnormality, CPK 86, trop less than 2.7 Lab Data 12/14/24 15:32 12/14/24 15:32 Labs: Lab Results 12/14/24 Range/Units 15:32 WBC 4.5 L (4.8-10.8) X10*3/uL RBC 4.57 (4.20-5.50) X10*6/uL Hgb 11.9 L (12.0-16.0) g/dl Hct 36.8 L (37.0-47.0) % MCV 80.5 (80.0-98.0) fL MCH 26.0 L (27.0-33.0) pg MCHC 32.3 (31.0-35.0) g/dl RDW 14.6 (11.0-16.0) % Plt Count 261 (160-400) X10*3/uL MPV 9.2 L (9.4-12.3) fL Immature Gran % (Auto) 0.4 (0.0-0.4) % Neut % (Auto) 58.1 (45-73) % Lymph % (Auto) 26.0 (20-40) % Billings % (Auto) 13.1 H (2-11) % Eos % (Auto) 2.2 (0-4) % Baso % (Auto) 0.2 (0-2) % Lymph # (Auto) 1.2 (1.2-4.9) X10*3/uL Bill[place] # (Auto) 0.6 (0.1-1.2) X10*3/uL Eos # (Auto) 0.1 (0.0-0.4) X10*3/uL Baso # (Auto) 0.0 (0.0-0.2) X10*3/uL Abs Immat Gran (auto) 0.02 (0.00-0.03) X10*3/uL Absolute Neuts (auto) 2.6 (2.0-8.3) x10*3/uL Absolute Nucleated RBC 0.000 (0.0-0.012) X10*3/uL Nucleated RBC % (auto) 0.0 (0.0-0.2) /100WBC Sodium 139 (135-145) mmol/L Potassium 3.8 (3.3-5.1) mmol/L Chloride 101 (96-108) mmol/L Carbon Dioxide 31 H (22-29) mmol/L Anion Gap 11 L (12-20) BUN 9 (9-16) mg/dL Creatinine 0.64 (0.5-1.4) mg/dL Estim Creat Clear Calc 184.5 Estimated GFR > 60 Random Glucose 107 (60-115) mg/dL Calcium 9.2 D (8.4-10.2) mg/dL Magnesium 2.1 (1.6-2.6) mg/dL Total Bilirubin 0.2 (0.0-1.0) mg/dL Direct Bilirubin < 0.2 (0.0-0.5) mg/dL AST 46 H (5-31) U/L ALT < 30 (0-31) U/L Alkaline Phosphatase 78 (39-117) U/L Total Creatine Kinase 86 (26-140) U/L Troponin I High Sens < 2.7 (<3.5-17.0) ng/L Total Protein 8.5 H (6.5-8.0) g/dL Albumin 4.3 (3.5-5.0) g/dL Discharge Plan Discharge Clinical Impression: Electric shock Patient Disposition: Home, Self-Care Additional Instructions: All of your labs were normal. The tingling sensation that is residual in the finger will likely resolve. Take the methocarbamol as needed for discomfort, to note it does cause drowsiness, do not drive or operate machinery while taking this medication. Follow up with your primary care provider within a week. Prescriptions: New methocarbamol 750 mg tablet 750 mg PO Q8H PRN (Reason: pain, moderate) Qty: 10 0RF No Action cetirizine [Zyrtec] 10 mg tablet 10 mg PO DAILY Qty: 90 0RF fluticasone propionate [Allergy Relief (fluticasone)] 50 mcg/actuation spray,suspension 2 spray intranasal DAILY Qty: 16 2RF Rx Instructions: administer into each nostril albuterol sulfate 2.5 mg /3 mL (0.083 %) solution for nebulization 2.5 mg inhalation Q6H Qty: 75 0RF montelukast 10 mg tablet 10 mg PO BEDTIME Qty: 90 1RF hydrochlorothiazide 25 mg tablet 25 mg PO DAILY Qty: 90 1RF cyclobenzaprine 10 mg tablet 10 mg PO BEDTIME PRN (Reason: muscle spasm) 30 Days Qty: 30 1RF meloxicam 7.5 mg tablet 7.5 mg PO DAILY PRN (Reason: left shoulder) 30 Days Qty: 30 0RF albuterol sulfate [Ventolin HFA] 90 mcg/actuation HFA aerosol inhaler 2 puff inhalation Q6H PRN (Reason: bronchospasm) Qty: 8.5 3RF sumatriptan succinate 25 mg tablet See Rx Instructions PO .COMPLEX Qty: 7 3RF Rx Instructions: take 1 tab at onset of headache; if no relief may repeat 1 tab after at least 2 hrs; max = 4 tabs/24 hr PO ferrous sulfate 325 mg (65 mg iron) tablet 325 mg PO DAILY Qty: 90 2RF Zepbound 2.5 mg/0.5 mL pen injector 2.5 mg subcut QWEEK Qty: 2 0RF Rx Instructions: for 4 weeks omeprazole 20 mg capsule,delayed release(DR/EC) 20 mg PO DAILY Qty: 30 3RF Print Language: Kazakh
--- NOTE | 2024-12-14 15:10 | ECG_ITS ---
Test Reason : chest pain Blood Pressure : */* mmHG Vent. Rate : 80 BPM Atrial Rate : 80 BPM P-R Int : 184 ms QRS Dur : 88 ms QT Int : 384 ms P-R-T Axes : 38 24 7 degrees QTcB Int : 442 ms Normal sinus rhythm Cannot rule out Anterior infarct , age undetermined Abnormal ECG When compared with ECG of 26-Apr-2016 11:09, No significant change was found Referred By: Shaina Randle Electronically Signed By: PREET VILLARREAL
[2024-12-14 15:13] VITALS: BP 146/97; PULSE 82; RESP 18; TEMP 36.6; O2SAT 98; BMI 56.5
[2024-12-14 15:38] LABS: MANUAL DIFF FLAG NO
[2024-12-14 15:40] LABS: Basophils Percent Auto 0.2 % (0-2); Eosinophils Absolute Auto 0.1 X10*3/uL (0.0-0.4); Eosinophils Percent Auto 2.2 % (0-4); Hematocrit 36.8 % (37.0-47.0); Hemoglobin 11.9 g/dl (12.0-16.0); Imm Gran Abs Auto 0.02 X10*3/uL (0.00-0.03); Imm Gran Pct Auto 0.4 % (0.0-0.4); Lymphocytes Absolute Auto 1.2 X10*3/uL (1.2-4.9); Mean Corpuscular HGB Conc 32.3 g/dl (31.0-35.0); Mean Corpuscular Volume 80.5 fL (80.0-98.0); Mean Platelet Volume 9.2 fL (9.4-12.3); Monocytes Absolute Auto 0.6 X10*3/uL (0.1-1.2); Monocytes Percent Auto 13.1 % (2-11); Neutrophils Absolute Auto 2.6 x10*3/uL (2.0-8.3); Neutrophils Percent Auto 58.1 % (45-73); Platelet Count 261 X10*3/uL (160-400); Red Blood Count 4.57 X10*6/uL (4.20-5.50); Red Cell Distribution Width 14.6 % (11.0-16.0); White Blood Count 4.5 X10*3/uL (4.8-10.8)
[2024-12-14 15:57] LABS: Albumin Level 4.3 g/dL (3.5-5.0); Alkaline Phosphatase 78 U/L (39-117); Anion Gap 11 (12-20); Aspartate Amino Transferase 46 U/L (5-31); Bilirubin Direct < 0.2 mg/dL (0.0-0.5); Bilirubin Total 0.2 mg/dL (0.0-1.0); Blood Urea Nitrogen 9 mg/dL (9-16); Calcium 9.2 mg/dL (8.4-10.2); Carbon Dioxide 31 mmol/L (22-29); Chloride 101 mmol/L (96-108); Creatinine Clr Calc Pharmacy 184.5; Estimated Glomerular Filt Rate > 60; Glucose Random 107 mg/dL (60-115); Magnesium 2.1 mg/dL (1.6-2.6); Potassium 3.8 mmol/L (3.3-5.1); Sodium 139 mmol/L (135-145); Total Protein 8.5 g/dL (6.5-8.0)
[2024-12-14 16:03] LABS: Troponin-I High Sensitivity < 2.7 ng/L (<3.5-17.0)
[2024-12-14 16:42] LABS: Alanine Aminotransferase < 30 U/L (0-31)
[2024-12-14 20:06] VITALS: BP 144/88; PULSE 84; RESP 20; TEMP 36.7; O2SAT 98
[2024-12-14 20:16] VITALS: BP 144/88; PULSE 84; RESP 20; TEMP 36.7; O2SAT 98
== END 2024-12-14 20:20 | disposition home or self-care (01) ==
PROVIDERS: Physician Assistant Medical; Emergency Provider Emergency Medicine; PCP Nurse Practitioner Family
DX: T75.4XXA Electrocution, initial encounter (principal); W86.8XXA Exposure to other electric current, initial encounter; Y93.89 Activity, other specified; Y92.9 Unspecified place or not applicable; Y99.9 Unspecified external cause status
CPT/HCPCS: 36415; 80048; 80076; 82550; 83735; 84484; 85025; 93005; 99283; 99284

== ENCOUNTER → 2024-12-14 15:10 | Outpatient (BNV) | payer OTHER, SELFPAY | PROVIDERS: Emergency Provider Emergency Medicine; PCP Nurse Practitioner Family; Visit Provider Internal Medicine | DX: R94.31 Abnormal electrocardiogram [ECG] [EKG] (principal); R07.9 Chest pain, unspecified | CPT/HCPCS: 93010 ==

== ENCOUNTER 2025-01-05 08:30 | Outpatient (AMB) | payer OTHER, SELFPAY ==
--- OUTSIDE RECORDS SUMMARY | 2025-01-05 08:34 | XMS_ITS | Clinical Summary ---
Author Organization [facility] ity Address [address] [place] [address] Care Team Providers Care Spinner Cap Frame Name Role Phone Unavailable Primary Care Provider Unavailabl e Social History Tobacco Use Types Packs/Day Years Used Date Smoking Tobacco: Never Assessed Comments Unknown Sex and Gender Information Value Date Recorded Sex Assigned at Not on file Legal Sex Female 8:21 PM EST Gender Identity Not on file Sexual Orientation Not on file Plan of Treatment Health Maintenance Due Date Last Done Comments DTaP,Tdap,and Td Vaccines (1 - Tdap) 2004 Hepatitis B Vaccines (1 of 3 - 19+ 3-dose series) 2004 Cervical Cancer Screening: P ap Smear 2006 COVID-19 Vaccine (2023-2 5 season) 2024 Influenza Vaccine (#1) 2024 HIB Vaccines Aged Out No longer eligi ble based on patient's age to complete this topic HPV Vaccines Aged Out No longer eligi ble based on patient's age to complete this topic Hepatitis A Vaccines Aged Out No long er eligible based on patient's age to complete this topic IPV Vaccines Aged Out No longer eligi ble based on patient's age to complete this topic MMR Vaccines Aged Out No longer eligi ble based on patient's age to complete this topic Meningococcal ACWY Vaccine Aged Out N o longer eligible based on patient's age to complete this topic Meningococcal B Vacine Aged Out No lo nger eligible based on patient's age to complete this topic Pneumococcal Vaccine: Pediat rics (0 to 5 Years) and At-Risk Patients (6 to 64 Years) Aged Out No longer eligible b ased on patient's age to complete this topic RSV Immunization Patients Un liu 20 months Aged Out No longer eligible b ased on patient's age to complete this topic Varicella Vaccines Aged Out No longer eligible based on patient's age to complete this topic
--- OUTSIDE RECORDS SUMMARY | 2025-01-05 08:34 | XMS_ITS | Continuity of Care Document ---
Author Organization [facility] al Address [address] [place] [address]- Care Team Providers Care Butter Maker Name Role Phone [place] [employer]OSING COORDINATOR, Celine Primary Care Physician Encounter [facility] Date(s): 12/14/24 - 12/14/[address] [address]- Discharge Disposition: A-D/C Walkout Attending Physician: Leandro Rodriguez DO Admitting Physician: Leandro Rodriguez DO Referring Physician: Not on Staff, Referring MD Encounter Type: Disch ES Allergies, Adverse Reactions, Alerts Substance Criticality Severity Reaction Reaction Severity Status aminophylline/amobarbital/ep he drine Active Contrast Dye Active Medications ProAir HFA Inhalation, Every 6 hours, 0 Refills, Maintenance, 07/25/21 2:56:00 PM EDT, Partial fill upon patientrequest if the prescription is for a schedule II opioid drug. Start Date: 07/25/21 Status: Ordered Repeat number: 1 Sprintec 0.25 mg-35 mcg oral tablet 1 tablet, By Mouth, Daily, # 84 tablet, 0 Refills, Maintenance, 04/03/23 8:22:00 PM EDT, Tablet, [id number], Partial fill upon patient request if the prescription is for a schedule II opioid drug., 1 tablet By Mouth Daily, 167, cm, 04/03/23 18:58:00 EDT, Height, 166, kg, 04/03/23 18:58:00 EDT, Dry Weight Start Date: 04/03/23 Status: Ordered Quantity: 84.0 Unit: tablet Repeat number: 1 Problem List Condition Confirmation Course Effective Dates Status Health St atus Informant Severe obesity Confirmed Active Vital Signs Most recent to oldest [Reference Range]: 1 Oxygen Saturation [94-100 %] 99 % (12/14/24 12:52 PM) Pulse Rate [55-90 bpm] 99 bpm *H* (12/14/24 12:52 PM) Social History Social History Type Response Smoking Status Never (less than 100 in lifetime) entered on: 09/19/22 Sex Sex Representation Female (finding) Patient Care team information Care Team Personnel Name: Celine Jorge NP Position: Reference Physician Member Role: PCP Address: [address] [place], [place] [address] Telecom: Care Team Related Persons Name: IGOR BRIGGS Name: NOLAN SAUCEDO Name: MOISÉS SAMPSON Insurance Providers Guarantor name: STEPHANIA SAUCEDO Health Plan Information #: 1 Payer: [employer] Member Number: [id number] Policy Number: NA Group Number: NA Health Plan Information #: 2 Payer: [employer] Member Number: [id number] Policy Number: NA Group Number: NA
[2025-01-05 09:04] VITALS: BP 116/80; PULSE 72; RESP 20; TEMP 37.1; O2SAT 100; BMI 58.4
--- NOTE | 2025-01-05 09:04 | AM.OFFWIN_ITS ---
Intake Vital Signs 01/05/25 09:04 Height 5 ft 6 in Weight 362 lb BMI 58.4 BP 116/80 Blood Pressure Location Rt brachial Position Sitting Respiration 20 Pulse 72 Pulse Source Pulse Oximeter Temp 98.8 F Temp Source Oral Pulse Oximetry (%) 100 Oxygen Delivery Method Room Air Intake Visit Reasons: EP Cough, mucus, sob/asthma Intake Note: Pt is here today for a walk in visit. Pt c/o cough and a lot of mucus congestion. Pt states that she has been coughing up green muscus. Pt states that she has been taking Mucinex for 2 weeks now. Patient Tobacco Use Status: Never used Tobacco Allergies Iodinated Contrast Media [IV CONTRAST] Allergy (Severe, Verified 01/05/25 09:08) BRONCHOSPASM aminophylline Allergy (Unknown, Verified 01/05/25 09:08) unknown - childhood, unknown: chlidhood iodine Allergy (Unknown, Verified 01/05/25 09:08) asthma attack ondansetron [Zofran] Allergy (Unknown, Verified 01/05/25 09:08) Dizziness lactose Allergy (Verified 01/05/25 09:08) Gastrointestinal Upset I V dye Allergy (Unknown, Uncoded 01/05/25 09:08) asthma attack Iodine Allergy (Unknown, Uncoded 01/05/25 09:08) asthma attack slovenian cheese Allergy (Uncoded 01/05/25 09:08) Anaphylaxis HPI HPI Comments History of Present Illness Details History - The patient is a 39-year-old female pr esenting with persistent cough, shortness of breath and congestion. - She has a history of asthma, using inh jhonatan and nebulizer (every 6 hours) treatments during exacerbations. - Symptoms started two weeks ago with a cold, followed by ongoing cough and mucus production. - The cough is severe, with green mucus but no fever or associated systemic symptoms. - Treatment included Mucinex for two wee ks, yielding partial relief. - Medical history notes hypertension, co ntrolled with prescribed medication. Physical Exam General: Cooperative, healthy appearing, comfortable and no acute distress Orientation/consciousness: Patient oriented x3 Limitations: No limitations Head: Normal to inspection Ears: Hearing grossly normal bilaterally, external ears normal and TM's normal bilaterally Nose: Normal external nose present, Normal nares present and No nasal discharge present Face and sinus: Normal facial exam and Yes sinuses nontender Mouth: Normal oral and palatal mucosa present and moist mucous membranes Throat: Yes tonsils normal, Yes uvula midline. Posterior oropharynx erythema Eyes: Appearance normal, both eyes and all related structures Neck: Normal visual inspection Respiratory: Clear to auscultation bilaterally. Normal respiratory effort, able to speak in complete sentences, Actively coughing, no respiratory distress, not tachypneic, no tripod positioning and no use of accessory muscles. Cardiovascular: Regular rate and rhythm. Normal S1 and S2 Skin: No rashes or lesions noted Neuro: Patient oriented x3 Extremities: Normal to inspection and Yes no clubbing, cyanosis or edema PFSH Medical History DDD (degenerative disc disease), cervical Elevated BP without diagnosis of hypertension BMI 60.0-69.9, adult Tear of meniscus of left knee Asthma Surgical History H/O hand surgery History of cholecystectomy Family History Mother HTN (hypertension) COPD (chronic obstructive pulmonary disease) Substance use disorder Father Diabetes Substance use disorder Sister Substance use disorder Brother Substance use disorder Social History Household Members Other:: son, female partner Housing: Apartment Alcohol intake: never Patient Tobacco Use Status: Never used Tobacco e-Cigarette/Vaping Use: Never Used Second Hand Smoke Exposure: No Current occupational status: employed 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 Sexual orientation: Straight/Heterosexual Gender identity: Female Cognitive needs: No Hearing needs: No Vision needs: No Female Reproductive History Menstrual Age of Menarche: 12 Review of Systems Const All systems reviewed & are unremarkable except as noted in HPI and below Physical Exam Vital Signs: Last Vital Signs Temp 98.8 F 01/05/25 09:04 Pulse 72 01/05/25 09:04 Resp 20 01/05/25 09:04 BP 116/80 01/05/25 09:04 Pulse Ox 100 01/05/25 09:04 Oxygen Delivery Method Room Air 01/05/25 09:04 BMI result Body Mass Index 58.4 Assessment & Plan Assessment & Plan (1) URI, acute: Code(s): J06.9 - Acute upper respiratory infection, unspecified Plan: The patient presents with a persistent upper respiratory infection and asthma exacerbation. To manage these, a SoluMedrol Dosepak is prescribed for a six-day steroid taper, aimed at reducing respiratory symptoms and nebulizer use. The dosing schedule involves taking the full daily dose in the morning. The patient may continue Mucinex as needed, and current antihypertensive therapy with hydrochlorothiazide remains compatible with this management strategy. Oxygen sa turation is 100%, mitigating concern for pneumonia. Patient was informed and verbally consented to the use of an ambient scribe for clinic note documentation during this visit (2) Asthma exacerbation, mild: Code(s): J45.901 - Unspecified asthma with (acute) exacerbation Plan: as above Medications: New methylprednisolone PO PER PKG DIR for 6 days 21 ea 0RF Coding Level of Care Code Est Pt Level 3 (96465) Diagnoses URI, acute J06.9 Asthma exacerbation, mild J45.901
== END 2025-01-05 09:24 | disposition home or self-care (01) ==
PROVIDERS: PCP Nurse Practitioner Family; Visit Provider Physician Assistant
DX: J06.9 Acute upper respiratory infection, unspecified (principal); J45.901 Unspecified asthma with (acute) exacerbation

== ENCOUNTER → 2025-01-05 08:30 | Outpatient (BNVA) | payer OTHER, SELFPAY | PROVIDERS: PCP Nurse Practitioner Family | DX: J06.9 Acute upper respiratory infection, unspecified (principal); J45.901 Unspecified asthma with (acute) exacerbation | CPT/HCPCS: 99212 ==

== ENCOUNTER 2025-01-17 15:02 | Outpatient (AMB) | payer OTHER, SELFPAY ==
--- NOTE | 2025-01-17 15:10 | A.OFFPC_ITS ---
Vital Signs 01/17/25 15:35 Height 5 ft 6 in Weight 377 lb 6 oz BMI 60.9 BP 126/78 Blood Pressure Location Rt brachial Position Sitting Respiration 18 Pulse 72 Pulse Source Pulse Oximeter Pulse Oximetry (%) 98 Oxygen Delivery Method Room Air Intake Visit Reasons: 3 months f/up Allergies Iodinated Contrast Media [IV CONTRAST] Allergy (Severe, Verified 01/17/25 15:38) BRONCHOSPASM aminophylline Allergy (Unknown, Verified 01/17/25 15:38) unknown - childhood, unknown: chlidhood iodine Allergy (Unknown, Verified 01/17/25 15:38) asthma attack ondansetron [Zofran] Allergy (Unknown, Verified 01/17/25 15:38) Dizziness lactose Allergy (Verified 01/17/25 15:38) Gastrointestinal Upset I V dye Allergy (Unknown, Uncoded 01/05/25 09:08) asthma attack Iodine Allergy (Unknown, Uncoded 01/05/25 09:08) asthma attack british cheese Allergy (Uncoded 01/05/25 09:08) Anaphylaxis Tobacco use date assessed: 01/17/25 Dental Screening Dental Screen Date: 01/17/25 Did you have a dental visit in the last 12 months?: Yes Did you have a dental problem in the last 6 months where you did not have access to dental care?: No Was dental information given to patient?: Patient has dentist HPI 3 months f/up HPI Details Chief Complaint Persistent cough following a viral illness. History of Present Illness The patient is a 39-year-old female presenting with a persistent cough following a viral illness. She initially experienced symptoms consistent with a viral upper respiratory tract infection, which is showing signs of improvement. However, the cough, as a residual effect, has persisted. The patient was reassured that the cough might take several weeks to diminish. This cough is a ssociated with phlegm production, for which she was recommended Mucinex and increased fluid intake. The patient denies any other worsening symptoms and has not required additional treatment for the viral condition since her last visit. Her condition is stable, and she continues self-management measures as previously instructed. Social History - Interested in medical weight loss clin ic for obesity management. - Encouraged to increase fluid intake. Health Maintenance - Discussion on weight management throug h medical weight loss clinic referral. - Encouraged adequate hydration. Review of Systems - Respiratory: Reports persistent cough with phlegm following a viral illness. denies any fevers, chills, SOB. Physical Exam General: Cooperative, healthy appearing, comfortable, no acute distress and well developed Orientation: Patient oriented x3 Limitations: No limitations Head: Normal to inspection Ears: Hearing grossly normal bilaterally Nose: Normal external nose present Face and sinus: Normal facial exam Eyes: Appearance normal, both eyes and all related structures Neck: Normal visual inspection and Yes full ROM Respiratory: Normal respiratory effort and able to speak in complete sentences. Clear to auscultation bilaterally Cardiovascular: Regular rate and rhythm. Normal S1 and S2 GI: Normal to inspection. Soft to palpation and nontender Skin: No rashes or lesions noted Neuro: Patient oriented x3 Extremities: Normal to inspection Results Plan To address the persistent cough following a viral illness, I advised the patient to continue using Mucinex for managing phlegm, emphasizing adequate hydration to support recovery. For the noted obesity, a referral to a medical weight loss clinic was made, aligning with the patient's expressed interest in pursuing structured weight management options. She was counseled on the typical course of viral illnesses and reminded of the necessity for follow-up should her symptoms worsen. Discussion Notes I discussed with the patient the understanding that viral upper respiratory tract infections often result in a residual cough that may persist for several weeks. We reviewed the use of Mucinex as a mucolytic agent to assist with phlegm, and she agreed to continue this regimen. I also emphasized the importance of proper hydration during the recovery process. Regarding her weight management interest, I referred her to a medical weight loss clinic to assist with structured weight reduction plans. Discussion of the chronic nature of obesity and the potential health benefits of weight loss was included. Patient Instructions - Take Mucinex to help manage cough and reduce phlegm. - Drink plenty of fluids to support kathy very from the viral illness. - Monitor symptoms and follow up if you experience any worsening. - Consider attending the medical weight loss clinic for weight management support. [facility] Medical History DDD (degenerative disc disease), cervical Elevated BP without diagnosis of hypertension BMI 60.0-69.9, adult Tear of meniscus of left knee Asthma Surgical History H/O hand surgery History of cholecystectomy Family History Mother HTN (hypertension) COPD (chronic obstructive pulmonary disease) Substance use disorder Father Diabetes Substance use disorder Sister Substance use disorder Brother Substance use disorder Social History Household Members Other:: son, female partner Housing: Apartment Alcohol intake: never Patient Tobacco Use Status: Never used Tobacco e-Cigarette/Vaping Use: Never Used Second Hand Smoke Exposure: No Current occupational status: employed 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 1. Little interest or pleasure in doing things: more than half the days 2. Feeling down, depressed, or hopeless: several days 3. Trouble falling or staying asleep, or sleeping too much: not at all 4. Feeling tired or having little energy: not at all 5. Poor appetite or overeating: more than half the days 6. Feeling bad about yourself - or that you are a failure or have let yourself or your family down: not at all 7. Trouble concentrating on things, such as reading the newspaper or watching television: several days 8. Moving or speaking so slowly that other people could have noticed. Or the opposite - being so fidgety or restless that you have been moving around a lot more than usual: not at all 9. Thoughts that you would be better off or of hurting yourself in some way: not at all Total score: 6 Depression Screening Interpretation: Negative Depression Screening Done: Yes 15397 - PHQ-9 Billing: Yes Source: Developed by Drs. Anthony Peng, Hattie Sharif, Yovany claire nd colleagues, with an educational ludwin from [employer]. Thrive Questionnaire Date Thrive assessed: 01/17/25 I am a: Patient What is your living situation today?: I have a steady place to live Within the past 12 months, did the food you bought not last and you didn't have the money to get more?: I choose not to answer this question Within the past 12 months, did you worry whether your food would run out before you got money to buy more?: Never true Do you have trouble paying for medicines?: Yes Do you have trouble getting transportation to medical appointments?: No Do you have trouble paying your heating and electricity bill?: Yes Do you have trouble taking care of your child, family member or friend?: No Do you have trouble with day-to-day activities such as bathing, preparing meals, shopping, managing finances, etc.?: No Are you currently unemployed and looking for a job?: No Are you interested in more education?: No Please select the resources that you would like help with: None Currently or been in a relationship where the following occur: I choose not to answer THRIVE Score: 1 AUDIT C Alcohol Use Questionnaire (AUDIT-C) 1. How often do you have a drink containing alcohol?: Never 3. How often do you have six or more drinks on one occasion?: Never Total Score: 0 Score Reviewed/Action Taken: Yes GINI-7 AMB Questionnaire GINI-7 Date GINI - 7 assessed: 01/17/25 Feeling nervous, anxious, or on edge: 0 = Not at all Not being able to stop or control worryin = Not at all Worrying too much about different things: 0 = Not at all Trouble relaxin = Not at all Being so restless that it is hard to sit still: 0 = Not at all Becoming easily annoyed or irritable: 0 = Not at all Feeling afraid as if something awful might happen: 0 = Not at all Total GINI-7 score (0-4 normal; 5-9 mild; 10-14 moderate; 15-21 severe): 0 Source: Developed by Drs. Anthony Peng, Hattie Sharif, Yovany Arechiga and colleagues, with an educational ludwin from [employer]. GINI-7 Assessment Billing GINI-7 Assessment Tool: GINI-7 Assessment 43123 Physical exam (Primary Care) Vital Signs: Last Vital Signs Pulse 72 01/17/25 15:35 Resp 18 01/17/25 15:35 BP 126/78 01/17/25 15:35 Pulse Ox 98 01/17/25 15:35 Oxygen Delivery Method Room Air 01/17/25 15:35 BMI result Body Mass Index 60.9 Tobacco/Smoking Status: Tobacco use Status Tobacco use date assessed 01/17/25 01/17/25 15:39 Patient Tobacco Use Status Never used Tobacco 01/17/25 15:11 e-Cigarette/Vaping Use Never Used 01/17/25 15:11 PHQ-9: PHQ-9 Score PHQ-9: Total score 6 01/17/25 15:39 Depression Screening Interpretation: Negative Thrive Assessment: Date of Thrive Assessment Date Thrive assessed 01/17/25 01/17/25 15:39 Currently or been in a relationship where the following occur: I choose not to answer Coding Level of Care Code Est Pt Level 3 (28823) Diagnoses Morbid obesity E66.01 Screening-pulmonary TB Z11.1 Additional Codes IGNI-7 Assessment Billing - GINI-7 Assessment Tool: GINI-7 Assessment 41774 ([id number]) PHQ-9 - 95265 - PHQ-9 Billing: Yes ([id number]) Assessment & Plan Assessment & Plan (1) Morbid obesity: Code(s): E66.01 - Morbid (severe) obesity due to excess calories Category: Medical (2) Screening-pulmonary TB: Code(s): Z11.1 - Encounter for screening for respiratory tuberculosis Category: Medical Plan . Orders: Orders T Spot TB Today Z11.1 - Encounter for screening for respiratory tuberculosis Referrals Medical Weight Management Referral E66.01 - Morbid (severe) obesity due to excess calories
[2025-01-17 15:35] VITALS: BP 126/78; PULSE 72; RESP 18; O2SAT 98; BMI 60.9
--- OUTSIDE RECORDS SUMMARY | 2025-01-17 17:54 | XMS_ITS | Clinical Summary ---
Author Organization [facility] ity Address [address] [place] [address] Care Team Providers Care Stucco Mason Name Role Phone Unavailable Primary Care Provider [...]
== END 2025-01-17 16:11 | disposition home or self-care (01) ==
PROVIDERS: PCP Nurse Practitioner Family; Visit Provider Nurse Practitioner Family
DX: E66.01 Morbid (severe) obesity due to excess calories (principal); Z68.44 Body mass index [BMI] 60.0-69.9, adult; Z11.1 Encounter for screening for respiratory tuberculosis

== ENCOUNTER → 2025-01-17 15:02 | Outpatient (BNVA) | payer OTHER, SELFPAY | PROVIDERS: PCP Nurse Practitioner Family; Visit Provider Nurse Practitioner Family | DX: E66.01 Morbid (severe) obesity due to excess calories (principal); Z68.44 Body mass index [BMI] 60.0-69.9, adult; Z71.3 Dietary counseling and surveillance | CPT/HCPCS: 96127; 99212 ==

== ENCOUNTER 2025-01-31 08:07 | Outpatient (AMB) | payer OTHER, SELFPAY ==
--- OUTSIDE RECORDS SUMMARY | 2025-01-31 08:14 | XMS_ITS | Clinical Summary ---
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
--- NOTE | 2025-01-31 13:33 | MHC.OFFVISWM ---
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 *SEE COMMENTS* Allergies Iodinated Contrast Media [IV CONTRAST] Allergy (Severe, Verified 01/31/25 13:33) BRONCHOSPASM aminophylline Allergy (Unknown, Verified 01/31/25 13:33) unknown - childhood, unknown: chlidhood iodine Allergy (Unknown, Verified 01/31/25 13:33) asthma attack ondansetron [Zofran] Allergy (Unknown, Verified 01/31/25 13:33) Dizziness lactose Allergy (Verified 01/31/25 13:33) Gastrointestinal Upset I V dye Allergy (Unknown, Uncoded 01/31/25 13:33) asthma attack Iodine Allergy (Unknown, Uncoded 01/31/25 13:33) asthma attack namibian cheese Allergy (Uncoded 01/31/25 13:33) Anaphylaxis Medication List - Last Reconciled 01/31/25 by Vasiliy Liriano MD albuterol sulfate 90 mcg/actuation (Ventolin HFA) 2 puffs inhalation Q6H PRN albuterol sulfate 2.5 mg (3 mL) inhalation Q6H cetirizine (Zyrtec) 10 mg PO DAILY fluticasone propionate 50 mcg/actuation (Allergy Relief (fluticasone)) 2 sprays intranasal DAILY hydrochlorothiazide 25 mg PO DAILY montelukast 10 mg PO BEDTIME omeprazole 20 mg PO DAILY sumatriptan succinate take 1 tab at onset of headache; if no relief may repeat 1 tab after at least 2 hrs; max = 4 tabs/24 hr PO HPI HPI 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 *SEE COMMENTS*: Details: Start time: 1.28pm, End time: 1.58pm ?I spent 25 minutes speaking with the patient on the phone plus an additional 5 minutes reviewing and updating records for a total of 30 minutes HPI Comments Details: Previous weight loss efforts: Mediterranean diet, exercise Wakes up: 4am, Sleeps: 8pm Breakfast: skips Lunch: 12pm (eggs and left over food) Dinner: 6pm (chicken, rice, vegetables, asparagus, steak, pork chops) Snacks: 5am (green apple, chips, donuts), 3-4pm (chips), sometimes chips after dinner Exercise: Has home stationary bike Beverages: Coffee: none, tea: none, soda: none, juice: Crystal light, ETOH: none PFSH Medical History (Updated 01/31/25 @ 13:37 by Vasiliy Liriano MD) GERD (gastroesophageal reflux disease) DDD (degenerative disc disease), cervical Elevated BP without diagnosis of hypertension BMI 60.0-69.9, adult Tear of meniscus of left knee Asthma Surgical History H/O hand surgery History of cholecystectomy Family History Mother HTN (hypertension) COPD (chronic obstructive pulmonary disease) Substance use disorder Father Diabetes Substance use disorder Sister Substance use disorder Brother Substance use disorder Social History (Updated 01/27/25 @ 11:19 by Justine Ann [facility]) Household Members Other:: son, female partner Housing: Apartment Alcohol intake: current Alcohol intake frequency: holidays/special occasions only Patient Tobacco Use Status: Never used Tobacco e-Cigarette/Vaping Use: Never Used Second Hand Smoke Exposure: No Current occupational status: employed 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 Sexual orientation: Straight/Heterosexual Gender identity: Female Cognitive needs: No Hearing needs: No Vision needs: No Female Reproductive History Menstrual Age of Menarche: 12 Telehealth Telehealth Telehealth Platform: Telephone Location of provider rendering services: practice address Location of patient: address on file Patient Identification confirmed using: Name, : Yes Telehealth method: voice only Patient verbally consented to treatment: Yes Patient verbally consented to billing insurance company: Yes Patient informed of any privacy concerns related to visit: Yes Minutes spent on Phone/Video with Pt.: 30 Assessment & Plan Assessment & Plan (1) Morbid obesity: Code(s): E66.01 - Morbid (severe) obesity due to excess calories Category: Medical Plan: 1. We discussed in detail the available therapeutic options: 1) our lifestyle intervention program that has an average weight loss of 10% in 3 months. 2) Weight loss medications. 3) We also discussed about the lap sleeve gastrectomy. I emphasized the importance of close follow-up, adherence to instructions and good communication. The surgery does not replace the need to change your lifestlyle which is the cause of the obesity problem. The surgery provides the motivation to try again to change your lifestyle, it reduces the appetite and make the transition to a better lifestyle easier and doubles the amount of weight you would lose compared to doing the lifestyle change without the surgery. You will need to be on a liquid diet with protein shakes for 2 weeks before surgery to maximize weight loss and boost your nutritional status to recover better from surgery and also for the first two weeks after surgery to let the stomach heal before we introduce other foods. After the first 2 weeks we will introduce protein bars and soft foods like scrambled eggs, cottage cheese and yogurt and after the 6th week will introduce meat, fish and cooked vegetables in small amounts. Over time you should be able to eat everything in small amounts. Side effects like nausea, vomiting, heartburn or abdominal pain are not common in the practice unless you are not following in the practice. This operation requires lifetime commitment to following in our practice and communication with me. You will much less weight and experience side effects if you don?t communicate or not following in the practice. Complications are rare and in our practice is about 1/10 of the national average. The patient prefers to try the anti-obesity medications. She had an elevated blood pressure in my office of 140 / 68 and she has medically treated hypertension. I asked her to track her blood pressure daily in the morning the next few days and based on these reading we I decide which medication is most appropriate for her.
[2025-01-31 13:52] VITALS: BMI 59.8
== END 2025-01-31 13:59 | disposition home or self-care (01) ==
LOC: HO.HBS 08:07
PROVIDERS: PCP Nurse Practitioner Family; Visit Provider Surgery
DX: E66.813 Obesity, class 3 (principal); Z68.43 Body mass index [BMI] 50.0-59.9, adult
CPT/HCPCS: 99203